=== PATIENT | female | born 1985 | race Caucasian/White ===

== ENCOUNTER 2019-01-27 16:02 | Inpatient (IN) | payer BC, SELFPAY ==
[~2019-01-27] VITALS: Ht 175.3 cm; Wt 111.1 kg
[2019-01-27] MEDS ORDERED: xanax (16:11)
[2019-01-27] MEDS ORDERED: bcp (16:11)
[2019-01-27] MEDS ORDERED: METF500T4 PO (16:11)
[2019-01-27] MEDS ORDERED: b/p med (16:11)
[2019-01-27 16:52] LABS: HEMOGLOBIN 13.5 g/dl (12.0-15.5); MEAN CORPUSCULAR HEMOGLOBIN 28.7 pg (27.0-33.0); MEAN CORPUSCULAR HGB CONC 32.9 g/dl (32.0-36.5); MEAN CORPUSCULAR VOLUME 87.2 fl (80.0-96.0); PLATELET COUNT, AUTOMATED 325 10^3/uL (150-450); WHITE BLOOD COUNT 9.7 10^3/uL (4.0-10.0)
[2019-01-27 17:21] LABS: HCG, SERUM QUALITATIVE NEGATIVE (NEGATIVE)
[2019-01-27 17:36] LABS: ACETAMINOPHEN LEVEL < 2.0 UG/ML (10.0-30.0); ALBUMIN 4.1 GM/DL (3.2-5.2); ALT/SGPT 48 U/L (12-78); BILIRUBIN,DIRECT 0.1 MG/DL (0.0-0.2); BILIRUBIN,TOTAL 0.6 MG/DL (0.2-1.0); BLOOD UREA NITROGEN 6 MG/DL (7-18); CALCIUM LEVEL 9.2 MG/DL (8.5-10.1); CARBON DIOXIDE LEVEL 24 MEQ/L (21-32); CHLORIDE LEVEL 104 MEQ/L (98-107); CREATININE FOR GFR 0.72 MG/DL (0.55-1.30); ETHYL ALCOHOL (ETHANOL) < 0.003 % (0.000-0.010); GLOMERULAR FILTRATION RATE > 60.0 (>60); GLUCOSE, FASTING 90 MG/DL (70-100); POTASSIUM SERUM 3.7 MEQ/L (3.5-5.1); SALICYLATE LEVEL 1.7 MG/DL (5.0-30.0); SODIUM LEVEL 137 MEQ/L (136-145)
[2019-01-27 18:33] LABS: AMPHETAMINES LEVEL URINE NEGATIVE (NEGATIVE); BARBITURATES URINE NEGATIVE (NEGATIVE); BENZODIAZEPINES URINE NEGATIVE (NEGATIVE); CANNABINOIDS URINE NEGATIVE (NEGATIVE); COCAINE METABOLITE URINE NEGATIVE (NEGATIVE); METHADONE URINE NEGATIVE (NEGATIVE); OPIATES URINE NEGATIVE (NEGATIVE); PHENCYCLIDINE URINE NEGATIVE (NEGATIVE)
[2019-01-27] MEDS ORDERED: metFORMIN (GLUCOPHAGE) 1000 MG TABLET PO ONE (20:04)
[2019-01-27] MEDS ORDERED: metFORMIN XR 500MG TAB *GLUCOPHAGE XR PO ONE (20:07)
[2019-01-27] MEDS ORDERED: MOM 30ML SUSPENSION UDC PO PRN (21:45)
[2019-01-27] MEDS ORDERED: traZODone 50 MG TAB PO PRN (21:45)
[2019-01-27] MEDS ORDERED: hydrOXYzine 50 MG TAB PO PRN (21:45)
[2019-01-27] MEDS ORDERED: ACETAMINOPHEN TAB 650MG DOSE (2X325MG) PO PRN (21:45)
[2019-01-27] MEDS ORDERED: MAALOX 30 ML SUSP *UDC PO PRN (21:45)
[2019-01-27] MEDS ORDERED: FLUO10CA8 PO (22:11)
[2019-01-27] MEDS ORDERED: LISI10TA2 PO (22:11)
[2019-01-27] MEDS ORDERED: ALPR0.25 PO (22:11)
[2019-01-27] MEDS ORDERED: PREVTAB2 PO (22:11)
[2019-01-27] MEDS ORDERED: METF10004 PO (22:11)
[2019-01-28 02:32] VITALS: BP 161/97
[2019-01-28 06:55] VITALS: BP 147/79
[2019-01-28] MEDS ORDERED: PALIPERIDONE 3 MG ER TAB (INVEGA) PO SCH (09:00)
[2019-01-28] MEDS: LISINOPRIL 10 MG TAB PO SCH (10:50)
[2019-01-28] MEDS: hydroCHLOROthiazide 12.5 MG CAPSULE PO SCH (11:03)
--- NOTE | 2019-01-28 13:40 | HPEPDOC ---
General Date of Admission January 27, 2019 at 21:43 Chief Complaint The patient is a 33-year-old female admitted with a reason for visit of Unspeci fied Psychotic Disorder. History of Present Illness Patient is a 33-year-old female, admitted on account of acute schizophrenic episode. Patient has a past medical history significant for obesity, anxiety disorder, type 2 diabetes mellitus, hypertension, and schizophrenia. Recent trigger seems to be loss of employment, medical nonadherence, paranoia about someone possibly breaking into her house and harming her 4-year-old daughter. On evaluation, she still feels very anxious and paranoid. She denies any chest pain, shortness of breath, palpitations, nausea, vomiting, chills or fever. She states she has not been sleeping for a few days since she was laid off "things became a bit crazy". Home Medications Scheduled Fluoxetine Hcl (Fluoxetine HCl) 10 Mg Capsule, 10 MG PO DAILY, (Reported) Lisinopril/Hydrochlorothiazide (Lisinopril-Hctz 10-12.5 mg Tab) 1 Each Tablet, 1 TAB PO DAILY, (Reported) Metformin HCl (Metformin HCl) 1,000 Mg Tablet, 1,000 MG PO QPM, (Reported) Norgestimate-Ethinyl Estradiol (Previfem Tablet) 1 Each Tablet, 1 TAB PO QHS, (Reported) Scheduled PRN Alprazolam (Alprazolam) 0.25 Mg Tablet, 0.25 MG PO BID PRN for ANXIETY, (Reported) Allergies Coded Allergies: No Known Allergies (Verified , 03/22/03) Past Medical History Medical History Hypertension Type 2 diabetes mellitus Anxiety Paranoid schizophrenia Insomnia A-FIB/CHADSVASC A-FIB History Current/History of A-Fib/PAF?: No Current Oral Anticoagulant The: No Review of Systems Other systems A 10 point pertinent review of systems is completed, negative except as stated in the history of present illness Physical Examination Other physical findings GENERAL: obese female in NAD SKIN : Warm, dry intact HEENT: Atraumatic, normocephalic, PERRL, moist mucous membrane CV: Regular rate and rhythm, S1S2, no JVD, no edema, distal pulses + and palpable RESP: CTAB, no accessory muscle use noted ABDOMEN: BS+ non distended non tender MS: no joint deformities NEURO: Alert and oriented x 3, CN2-12 grossly intact PSYCH: no anxiety or agitation, appropriate mood and affect. Vital Signs Vital Signs Date Time Temp Pulse Resp B/P (MAP) Pulse Ox O2 Delivery O2 Flow Rate FiO2 01/28/19 10:50 144/94 01/28/19 06:55 98.2 68 18 01/27/19 20:07 97 Room Air Laboratory Data Labs 24H Laboratory Tests 2 01/27/19 16:45: Nucleated Red Blood Cells % (auto) 0.0, Anion Gap 9, Glomerular Filtration Rate > 60.0, Calcium Level 9.2, Aspartate Amino Transf (AST/SGOT) 26, Alanine Aminotransferase (ALT/SGPT) 48, Alkaline Phosphatase 59, Total Bilirubin 0.6, Direct Bilirubin 0.1, Total Protein 8.0, Albumin 4.1, Albumin/Globulin Ratio 1.05, Thyroid Stimulating Hormone (TSH) 1.980, Human Chorionic Gonadotropin, Qual NEGATIVE, Salicylates Level 1.7L, Acetaminophen Level < 2.0L, Ethyl Alcohol Level < 0.003 01/27/19 17:49: Urine Amphetamines Screen NEGATIVE, Urine Benzodiazepines Screen NEGATIVE, Urine Opiates Screen NEGATIVE, Urine Methadone Screen NEGATIVE, Urine Barbiturates Screen NEGATIVE, Urine Phencyclidine Screen NEGATIVE, Urine Cocaine Metabolite Screen NEGATIVE, Urine Cannabinoids Screen NEGATIVE CBC/BMP Laboratory Tests 01/27/19 16:45 Red Blood Count 4.70, Mean Corpuscular Volume 87.2, Mean Corpuscular Hemoglobin 28.7, Mean Corpuscular Hemoglobin Concent 32.9, Red Cell Distribution Width 13.0 Assessment/Plan Hypertension Type 2 diabetes mellitus Insomnia Depression and anxiety Paranoid schizophrenia PLAN Finger stick checks prior to meals and at bedtime Diabetic diet Restart Glucophage, blood sugar control Restart blood pressure medication, lisinopril, hydrochlorothiazide Management of acute psychiatric problems by primary team Plan / VTE VTE Prophylaxis Ordered?: No VTE Exclusion Mechanical Proph: Low Risk for VTE KAYLA KLEIN January 28, 2019 13:40
--- NOTE | 2019-01-28 16:55 | MHHPEPDOC ---
General Date Of Admission: January 27, 2019 Legal Status: 9.39 Chief Complaint The patient was incoherent and seemed delusional, responding to internal stimuli. History of Present Illness HISTORY OF THE PRESENT ILLNESS: Patient is a 33 -year-old , female, who . Psychiatric Review of Systems Depression (2 or more weeks): denies (She is a poor historian, she only says that she has been "through ups and downslately because I'm just a busy nom, I'm trying to graduate and my daughter will graduate from [employer].") Lois (4 or more days of): decreased need for sleep (Please see below), distractibility, denies (she says she has not been sleeping for a couple of days, she is a poor historian and she is not giving precise information, she is not able to say how many days, of if she was having too much energy. She says she eas fired from her job and then, she has been going to sleep late and waking up late, so, she came to the point of not sleeping and that she only needs a good night sleep.) Psychosis: denies PTSD: denies Anxiety: gen/non-specific anxiety Anxiety/ 6 months or more of: restlessness, keyed up, irritability, muscle tension, sleep disturbance Past Psychiatric History Previous Psychiatric Diagnosis: Denies Previous Psychiatric Admissions: Denies Suicide Attempts: Denies Psychiatric Follow-up: [facility] Psychiatric medications: Denies Past Medical History Medical Problems Denies Head Injury: Yes (She says that she injured her head a couple of times but she never lost consciousness) Seizures: No Hospitalizations: Yes (This one and for child ) Surgeries: Yes (D and C's) Family Medical/Psychiatric HX Medical Problems Denies Psychiatric Disorders: No Addiction: No Suicide Attemps/Completions: No Addiction History nicotine (once in awhile), alcohol (once in awhile) Social History Childhood: She describes a nice childhood, she liked to play outside. she says she has a sister and a half brother, they got along, she is not very clear about her siblings ages, but she implies that they are 5 years apart. She reports going to school and enjoying it, not being bullied Abuse/Trauma: Denies Current Living Situation: Lives with , 4 year old daughter and stepson Education: some college education (accounting) Employment: Was recently laid off Social Support: Her , her mother in law Legal: Denies Marital: , has a 4 year old daughter and a stepson. Mental Status Examination General Appearance: well groomed, appears stated age, hospital scubs/clothing Build: overweight Demeanor: mistrustful, preoccupied, guarded, very figety Eye Contact: intense Activity: anxious Behavior: cooperative, resistant, restless Speech: clear, spontaneous, reg/rate,rhythm,volume Mood: anxious, hypomanic Affect: inappropriate (laughs at times when talking about srious subjects), i ncongruent, anxious, disorganized Thought Process: incoherent, tangential, loose Thought Content (Delusions): denies SI, HI, AVH Thought Content (Other): internal-stimuli, appears paranoid Thought Content (Aggressive): none reported Perception (Hallucinations): none reported Perception (Other): none reported Cognition (Impairment of): attention/concentration Cognition(Intelligence Est.): average Oriented: Awake, Alert, Oriented times three Insight: poor Judgment: Poor Psychosis: Associations, Psychotic Perceptions Diagnoses 1. Unspecified psychotic disorder 2. R/O bipolar disorder with psychosis Assessment Patient's thoughts are disorganized and she is paranoid. At one point she moved from her chair to another one because she was afraid and she didn't want to sit against the window, she kept looking back and I reassured and told her there was nobody there, nobody was going to harm her. she minimizes her symptos, she says several times that she was awake for several days because she got fired so she went late to bed and got up late until she came to the point of not sleeping and "all that I need was a good night sleep and eat well". Only once she became tearful, when she told me she was just a busy mother, she had been trying to study, she was going to college, she was about to graduate and she had a pre K daughter who was about to graduate, plus, she was working, so, it was too much. Initial Treatment Plan 1. Patient was admitted on a [9.39] status. 2. Complete history was obtained. 3. With patients permission, family will be contacted and database will be expanded. 4. Patients medication regimen will be reviewed and changed accordingly. 5. Patient will be provided with protected environment. 6. Patient will be treated with individual, group, and milieu therapies. 7. Patient will receive supportive psych-education. 8. Discharge planning will commence immediately. 9. Outpatient follow-up treatment will be strongly recommended. 10. The initial treatment plan will focus initially on: * Altered thoughts * Altered perceptions * Risk for suicide. * Substance abuse. ESTIMATED LENGTH OF STAY: 5-7 DAYS. TIME SPENT COUNSELING AND COORDINATING INITIAL CARE: 50 minutes. Vital Signs Vital Signs Date Time Temp Pulse Resp B/P (MAP) Pulse Ox O2 Delivery O2 Flow Rate FiO2 01/28/19 10:50 144/94 01/28/19 06:55 98.2 68 18 01/27/19 20:07 97 Room Air Laboratory Data 24H Labs Laboratory Tests 2 01/27/19 16:45: Nucleated Red Blood Cells % (auto) 0.0, Anion Gap 9, Glomerular Filtration Rate > 60.0, Calcium Level 9.2, Aspartate Amino Transf (AST/SGOT) 26, Alanine Aminotransferase (ALT/SGPT) 48, Alkaline Phosphatase 59, Total Bilirubin 0.6, Direct Bilirubin 0.1, Total Protein 8.0, Albumin 4.1, Albumin/Globulin Ratio 1.05, Thyroid Stimulating Hormone (TSH) 1.980, Human Chorionic Gonadotropin, Qual NEGATIVE, Salicylates Level 1.7L, Acetaminophen Level < 2.0L, Ethyl Alcohol Level < 0.003 01/27/19 17:49: Urine Amphetamines Screen NEGATIVE, Urine Benzodiazepines Screen NEGATIVE, Urine Opiates Screen NEGATIVE, Urine Methadone Screen NEGATIVE, Urine Barbiturates Screen NEGATIVE, Urine Phencyclidine Screen NEGATIVE, Urine Cocaine Metabolite Screen NEGATIVE, Urine Cannabinoids Screen NEGATIVE CBC/BMP Laboratory Tests 01/27/19 16:45 Red Blood Count 4.70, Mean Corpuscular Volume 87.2, Mean Corpuscular Hemoglobin 28.7, Mean Corpuscular Hemoglobin Concent 32.9, Red Cell Distribution Width 13.0 Medications Scheduled Fluoxetine Hcl (Fluoxetine HCl) 10 Mg Capsule, 10 MG PO DAILY, (Reported) Lisinopril/Hydrochlorothiazide (Lisinopril-Hctz 10-12.5 mg Tab) 1 Each Tablet, 1 TAB PO DAILY, (Reported) Metformin HCl (Metformin HCl) 1,000 Mg Tablet, 1,000 MG PO QPM, (Reported) Norgestimate-Ethinyl Estradiol (Previfem Tablet) 1 Each Tablet, 1 TAB PO QHS, (Reported) Scheduled PRN Alprazolam (Alprazolam) 0.25 Mg Tablet, 0.25 MG PO BID PRN for ANXIETY, (Reported) Allergies Coded Allergies: No Known Allergies (Verified , 03/22/03) ELIZABET BRANDT MD January 28, 2019 16:55
[2019-01-28] MEDS: metFORMIN (GLUCOPHAGE) 1000 MG TABLET PO SCH (17:52)
[2019-01-28 18:00] VITALS: BP 135/87
[2019-01-29 06:23] VITALS: BP 150/80
[2019-01-29] MEDS: metFORMIN (GLUCOPHAGE) 1000 MG TABLET PO SCH ×2 (08:00→18:14)
[2019-01-29] MEDS: hydroCHLOROthiazide 12.5 MG CAPSULE PO SCH (10:02)
[2019-01-29] MEDS: LISINOPRIL 10 MG TAB PO SCH (10:02)
[2019-01-29 18:00] VITALS: BP 142/65
--- NOTE | 2019-01-29 19:51 | MHIPNPDOC ---
[facility] Progress Note Progress Note DATE OF SERVICE: 01/29/19 HISTORY: In History of Present Illness should read: "As per ED report: "Pt. reports she has not not slept in days, stattes feeling very anxious. She reports her counselor wanted her come to ER. Pt. states she can't think, needs to get some help and some sleep. he states she hasn't been taking her meds but then says she did take them this morning. She appears very anxious, is unable to verbally complete her thoughts, states "What was I saying?" She denies AH, VH. When asked if she has had any thouights of harning herself she replied "No" andthen asked "i haven't have I?" and answered the sane to question of thoughts of harming others and started crying. She reports she is afraid that someone would break into her house because she has a 4 yr old daughter and she is afraid of pediphiles, stating she couldn't bare the thought of someone harning her. pt states she thinks all these thoughts might be due to too much going on in her life. She reports she is having difficulty getting use to not working. Her is out of town working , is here with mother in law and has written of list of who she trusts". VITAL SIGNS: See below. NEW TEST RESULTS: See below CURRENT MEDICATIONS: See below. MENTAL STATUS EXAMINATION: General Appearance: well groomed, appears stated age, hospital scubs/clothing Build: overweight Demeanor: mistrustful, preoccupied, guarded, very figety Eye Contact: intense Activity: anxious Behavior: cooperative, resistant, restless Speech: clear, spontaneous, reg/rate,rhythm,volume Mood: anxious, hypomanic Affect: inappropriate (laughs at times when talking about srious subjects), incongruent, anxious, disorganized Thought Process: incoherent, tangential, loose Thought Content (Delusions): denies SI, HI, AVH Thought Content (Other): internal-stimuli, appears paranoid Thought Content (Aggressive): none reported Perception (Hallucinations): none reported Perception (Other): none reported Cognition (Impairment of): attention/concentration Cognition(Intelligence Est.): average Oriented: Awake, Alert, Oriented times three Insight: poor Judgment: Poor Psychosis: Associations, Psychotic Perceptions Diagnoses 1. Unspecified psychotic disorder 2. R/O bipolar disorder with psychosis ASSESSMENT: The patient mental status exam has not changed that much since yesterday, she is still paranoid, guarded and focused on being discharged. This radio news writer told her that in order to be discharged, she needs to sign an TODD for us to speak with her and take her medications. She has agreed although I don't know if she will do it. MANAGEMENT PLAN: Will continue with the same treatment plan TIME SPENT: 20 minutes. Vital Signs Vital Signs Date Time Temp Pulse Resp B/P (MAP) Pulse Ox O2 Delivery O2 Flow Rate FiO2 01/29/19 18:00 97.2 97 16 142/65 (90) 01/27/19 20:07 97 Room Air Laboratory Data 24H Labs Laboratory Tests 2 01/29/19 06:04: Bedside Glucose (Misc Panel) 97 Current Medications Current Medications Acetaminophen (Tylenol Tab) 650 mg Q6HP PRN PO HEADACHE or DISCOMFORT; Start 01/27/19 at 21:45 Al Hydrox/Mg Hydrox/Simethicone (Mylanta) 30 ml Q4HP PRN PO HEARTBURN/INDIGESTION; Start 01/27/19 at 21:45 Aripiprazole (AbiLIFY) 5 mg DAILY PO Last administered on 01/29/19at 10:02; Start 01/28/19 at 17:30 Home Med (Med Rec Complete!) ASDIRECTED XX ; Start 01/27/19 at 22:15; Stop 01/27/19 at 22:15; Status DC Hydrochlorothiazide (Hydrodiuril) 12.5 mg DAILY PO Last administered on 01/29/19at 10:02; Start 01/28/19 at 09:00 Hydroxyzine HCl (Atarax) 50 mg Q4HP PRN PO ANXIETY/AGITATION; Start 01/27/19 at 21:45 Lisinopril (Prinivil) 10 mg DAILY PO Last administered on 01/29/19at 10:02; Start 01/28/19 at 09:00 Magnesium Hydroxide (Milk Of Magnesia) 30 ml DAILYPRN PRN PO CONSTIPATION; Start 01/27/19 at 21:45 Metformin HCl (Glucophage) 1,000 mg BID@08,18 PO Last administered on 01/29/19at 18:14; Start 01/28/19 at 18:00 Paliperidone (Invega) 3 mg BID PO ; Start 01/28/19 at 09:00; Stop 01/28/19 at 16:58; Status DC Trazodone HCl (Desyrel) 50 mg QHSP PRN PO INSOMNIA; Start 01/27/19 at 21:45 Allergies Coded Allergies: No Known Allergies (Verified , 03/22/03) A-FIB/CHADSVASC A-FIB History Current/History of A-Fib/PAF?: No Current Oral Anticoagulant The: No Age/Risk Factor Scoring CHADSVASC: CHADSVASC Response (Comments) Value Age Risk Factor Age < 65 years old 0 Hx of CHF No 0 Hx of HTN No 0 Hx of Stroke/TIA/or VTE No 0 Hx of Diabetes No 0 Hx of Vascular Disease No 0 Total 0 Treatment Treatment ordered: NONE Reason Anticoagulant not given: Not indicated/[id number] ELIZABET BRANDT MD January 29, 2019 19:51
[2019-01-30 07:09] VITALS: BP 149/91
[2019-01-30] MEDS: hydroCHLOROthiazide 12.5 MG CAPSULE PO SCH (08:37)
[2019-01-30] MEDS: LISINOPRIL 10 MG TAB PO SCH (08:37)
[2019-01-30] MEDS: metFORMIN (GLUCOPHAGE) 1000 MG TABLET PO SCH ×2 (08:37→17:26)
--- NOTE | 2019-01-30 18:21 | MHIPNPDOC ---
[facility] Progress Note Progress Note DATE OF SERVICE: 01/30/19 HISTORY: In History of Present Illness should read: "As per ED report: "Pt. reports she has not not slept in days, stattes feeling very anxious. She reports her counselor wanted her come to ER. Pt. states she can't think, needs to get some help and some sleep. he states she hasn't been taking her meds but then says she did take them this morning. She appears very anxious, is unable to verbally complete her thoughts, states "What was I saying?" She denies AH, VH. When asked if she has had any thouights of harning herself she replied "No" andthen asked "i haven't have I?" and answered the sane to question of thoughts of harming others and started crying. She reports she is afraid that someone would break into her house because she has a 4 yr old daughter and she is afraid of pediphiles, stating she couldn't bare the thought of someone harning her. pt states she thinks all these thoughts might be due to too much going on in her life. She reports she is having difficulty getting use to not working. Her is out of town working , is here with mother in law and has written of list of who she trusts". VITAL SIGNS: See below. NEW TEST RESULTS: See below CURRENT MEDICATIONS: See below. MENTAL STATUS EXAMINATION: General Appearance: well groomed, appears stated age, hospital scubs/clothing Build: overweight Demeanor: mistrustful, preoccupied, guarded, very figety Eye Contact: intense Activity: anxious Behavior: cooperative, resistant, restless Speech: clear, spontaneous, reg/rate,rhythm,volume Mood: anxious, hypomanic Affect: inappropriate (laughs at times when talking about serious subjects), incongruent, anxious, disorganized Thought Process: incoherent, tangential, loose Thought Content (Delusions): denies SI, HI, AVH Thought Content (Other): internal-stimuli, appears paranoid Thought Content (Aggressive): none reported Perception (Hallucinations): none reported Perception (Other): none reported Cognition (Impairment of): attention/concentration Cognition(Intelligence Est.): average Oriented: Awake, Alert, Oriented times three Insight: poor Judgment: Poor Psychosis: Associations, Psychotic Perceptions Diagnoses 1. Unspecified psychotic disorder 2. R/O bipolar disorder with psychosis 3. R/O Substance induced psychosis ASSESSMENT: The patient mental status exam has not changed much. she presented to treatment team this morning and she was nervous, wanting to peak to me abut discharge. she was seen later and she was still nervous and guarded. She became tearful when she started talking to me about her 4 year old girl and she showed me her pictures. she said she didn't know if she could put them on the wall and this hand sign writer suggested that it was better if she kept them for herself. She was still confused, she thought that she had been assigned with bed 1 in her room and not bed 2. She asked me, so, would they move if I was sleeping?, like I don't remember how I ended up in this bed" This hand sign writer mentioned that her relatives had told inventory control planner that she had changed when she ate brownies that contained marijuana, that was 2 weeks ago. Her urine tox was negative and she says she didn't know the brownies had marijuana in them. she seems to have some thought blocking, at times she is tangential, she is guarded, paranoid and at times inappropriate, when she stares at you, and comes really close, then she realizes that she is too close and backs up. MANAGEMENT PLAN: Increase Abilify to 0.5 mgs PO BID and Cogentin 0.5 mgs PO BID TIME SPENT: 20 minutes. Vital Signs Vital Signs Date Time Temp Pulse Resp B/P (MAP) Pulse Ox O2 Delivery O2 Flow Rate FiO2 01/30/19 08:37 140/84 01/30/19 07:09 98.0 75 18 01/27/19 20:07 97 Room Air Laboratory Data 24H Labs Laboratory Tests 2 01/30/19 06:24: Bedside Glucose (Misc Panel) 91 01/30/19 16:57: Bedside Glucose (Misc Panel) 102 Current Medications Current Medications Acetaminophen (Tylenol Tab) 650 mg Q6HP PRN PO HEADACHE or DISCOMFORT; Start 01/27/19 at 21:45 Al Hydrox/Mg Hydrox/Simethicone (Mylanta) 30 ml Q4HP PRN PO HEARTBURN/INDIGESTION; Start 01/27/19 at 21:45 Aripiprazole (AbiLIFY) 5 mg DAILY PO Last administered on 01/30/19at 08:37; Start 01/28/19 at 17:30 Home Med (Med Rec Complete!) ASDIRECTED XX ; Start 01/27/19 at 22:15; Stop 01/27/19 at 22:15; Status DC Hydrochlorothiazide (Hydrodiuril) 12.5 mg DAILY PO Last administered on 01/30/19at 08:37; Start 01/28/19 at 09:00 Hydroxyzine HCl (Atarax) 50 mg Q4HP PRN PO ANXIETY/AGITATION; Start 01/27/19 at 21:45 Lisinopril (Prinivil) 10 mg DAILY PO Last administered on 01/30/19at 08:37; Start 01/28/19 at 09:00 Magnesium Hydroxide (Milk Of Magnesia) 30 ml DAILYPRN PRN PO CONSTIPATION; Start 01/27/19 at 21:45 Metformin HCl (Glucophage) 1,000 mg BID@08,18 PO Last administered on 01/30/19at 17:26; Start 01/28/19 at 18:00 Paliperidone (Invega) 3 mg BID PO ; Start 01/28/19 at 09:00; Stop 01/28/19 at 16:58; Status DC Trazodone HCl (Desyrel) 50 mg QHS PO ; Start 01/30/19 at 21:00 Trazodone HCl (Desyrel) 50 mg QHSP PRN PO INSOMNIA; Start 01/27/19 at 21:45; Stop 01/30/19 at 10:54; Status DC Allergies Coded Allergies: No Known Allergies (Verified , 03/22/03) A-FIB/CHADSVASC A-FIB History Current/History of A-Fib/PAF?: No Current Oral Anticoagulant The: No Age/Risk Factor Scoring CHADSVASC: CHADSVASC Response (Comments) Value Age Risk Factor Age < 65 years old 0 Hx of CHF No 0 Hx of HTN No 0 Hx of Stroke/TIA/or VTE No 0 Hx of Diabetes No 0 Hx of Vascular Disease No 0 Total 0 Treatment Treatment ordered: NONE Reason Anticoagulant not given: Not indicated/[id number] ELIZABET BRANDT MD January 30, 2019 17:32
[2019-01-30 18:37] VITALS: BP 137/81
[2019-01-30] MEDS: traZODone 50 MG TAB PO SCH (22:11)
[2019-01-30] MEDS: BENZTROPINE 0.5 MG TAB PO SCH (22:11)
[2019-01-31 06:40] VITALS: BP 138/79
[2019-01-31] MEDS: metFORMIN (GLUCOPHAGE) 1000 MG TABLET PO SCH ×2 (07:29→17:53)
[2019-01-31] MEDS: BENZTROPINE 0.5 MG TAB PO SCH ×2 (08:22→21:00)
[2019-01-31] MEDS: hydroCHLOROthiazide 12.5 MG CAPSULE PO SCH (08:22)
[2019-01-31] MEDS: LISINOPRIL 10 MG TAB PO SCH (08:22)
[2019-01-31] MEDS ORDERED: ARIPiprazole 2 MG TAB PO SCH (09:00)
--- NOTE | 2019-01-31 15:36 | MHIPNPDOC ---
[facility] Progress Note Progress Note DATE OF SERVICE: 01/31/19 HISTORY: 33-year-old female was admitted for thought disorder. Presently treated with Abilify by Dr. Rene. VITAL SIGNS: See below. NEW TEST RESULTS: None. CURRENT MEDICATIONS: See below. MENTAL STATUS EXAMINATION: Patient is a 33-year old female, who is milligrams for thought disorder. Speech: Is characterized by thought stopping. Language skills are, poor. Thought processes including: Thought stopping. Thought content:, Thought stopping. Abstract reasoning, and computation: Poor. Description of associations:, Poor association. Description of abnormal or psychotic thoughts: Thought stopping and incomplete sentences Judgment:, Poor. Insight:, Poor. Orientation:. Oriented 3. Recent and remote memory:. Poor. Attention span and concentration: Poor. Language: Incomplete sentences. Fund of knowledge:. Unable to determine. Mood: Anxious. Affect:, Congruent. DIAGNOSES: 1. Brief psychotic reaction ASSESSMENT: This patient has a thought disorder, indicative of a brief psychotic reaction, possibly due to substance use MANAGEMENT PLAN: As per Dr Rene presently using Abilify. TIME SPENT: 30 minutes. Vital Signs Vital Signs Date Time Temp Pulse Resp B/P (MAP) Pulse Ox O2 Delivery O2 Flow Rate FiO2 01/31/19 08:22 133/91 01/31/19 06:40 98.4 74 18 01/27/19 20:07 97 Room Air Laboratory Data 24H Labs Laboratory Tests 2 01/30/19 16:57: Bedside Glucose (Misc Panel) 102 01/31/19 05:55: Bedside Glucose (Misc Panel) 86 Current Medications Current Medications Acetaminophen (Tylenol Tab) 650 mg Q6HP PRN PO HEADACHE or DISCOMFORT Last administered on 01/30/19at 22:12; Start 01/27/19 at 21:45 Al Hydrox/Mg Hydrox/Simethicone (Mylanta) 30 ml Q4HP PRN PO HEARTBURN/INDIGESTION; Start 01/27/19 at 21:45 Aripiprazole (AbiLIFY) 2 mg QAM PO ; Start 01/31/19 at 09:00; Status Cancel Aripiprazole (AbiLIFY) 5 mg BID PO Last administered on 01/31/19at 08:23; Start 01/30/19 at 21:00 Aripiprazole (AbiLIFY) 5 mg DAILY PO Last administered on 01/30/19at 08:37; Start 01/28/19 at 17:30; Stop 01/30/19 at 18:09; Status DC Aripiprazole (AbiLIFY) 5 mg DAILY PO ; Start 01/31/19 at 09:00; Stop 01/31/19 at 09:00; Status DC Benztropine Mesylate (Cogentin) 0.5 mg BID PO Last administered on 01/31/19at 08:22; Start 01/30/19 at 21:00 Home Med (Med Rec Complete!) ASDIRECTED XX ; Start 01/27/19 at 22:15; Stop 01/27/19 at 22:15; Status DC Hydrochlorothiazide (Hydrodiuril) 12.5 mg DAILY PO Last administered on 01/31/19at 08:22; Start 01/28/19 at 09:00 Hydroxyzine HCl (Atarax) 50 mg Q4HP PRN PO ANXIETY/AGITATION; Start 01/27/19 at 21:45 Lisinopril (Prinivil) 10 mg DAILY PO Last administered on 01/31/19at 08:22; Start 01/28/19 at 09:00 Magnesium Hydroxide (Milk Of Magnesia) 30 ml DAILYPRN PRN PO CONSTIPATION; Start 01/27/19 at 21:45 Metformin HCl (Glucophage) 1,000 mg BID@08,18 PO Last administered on 01/31/19at 07:29; Start 01/28/19 at 18:00 Paliperidone (Invega) 3 mg BID PO ; Start 01/28/19 at 09:00; Stop 01/28/19 at 16:58; Status DC Trazodone HCl (Desyrel) 50 mg QHS PO Last administered on 01/30/19at 22:11; Start 01/30/19 at 21:00 Trazodone HCl (Desyrel) 50 mg QHSP PRN PO INSOMNIA; Start 01/27/19 at 21:45; Stop 01/30/19 at 10:54; Status DC Allergies Coded Allergies: No Known Allergies (Verified , 03/22/03) A-FIB/CHADSVASC A-FIB History Current/History of A-Fib/PAF?: No Current Oral Anticoagulant The: No Age/Risk Factor Scoring CHADSVASC: CHADSVASC Response (Comments) Value Age Risk Factor Age < 65 years old 0 Hx of CHF No 0 Hx of HTN No 0 Hx of Stroke/TIA/or VTE No 0 Hx of Diabetes No 0 Hx of Vascular Disease No 0 Total 0 Treatment Treatment ordered: NONE TOMI SHAY MD January 31, 2019 15:36
[2019-01-31 18:28] VITALS: BP 137/66
[2019-01-31] MEDS: traZODone 50 MG TAB PO SCH (21:00)
[2019-02-01 06:32] VITALS: BP 136/88
[2019-02-01] MEDS: metFORMIN (GLUCOPHAGE) 1000 MG TABLET PO SCH ×2 (07:49→17:20)
[2019-02-01] MEDS: hydroCHLOROthiazide 12.5 MG CAPSULE PO SCH (08:12)
[2019-02-01] MEDS: BENZTROPINE 0.5 MG TAB PO SCH ×2 (08:12→20:29)
[2019-02-01] MEDS: LISINOPRIL 10 MG TAB PO SCH (08:12)
--- NOTE | 2019-02-01 15:25 | MHIPNPDOC ---
[facility] Progress Note Progress Note DATE OF SERVICE: 02/01/19 HISTORY: 33-year-old female with acute psychotic disorder. VITAL SIGNS: See below. NEW TEST RESULTS: None. CURRENT MEDICATIONS: See below. MENTAL STATUS EXAMINATION: Patient is a 33-year old female, who is improved today with less psychotic thought. Speech: Is. Normal. Language skills are adequate. Thought processes including: No thought stopping noted today. Thought content: Had until today. Significant thought stopping and s uspiciousness. Abstract reasoning, and computation: Present. Description of associations:. No loose association. Description of abnormal or psychotic thoughts:. No psychotic thought noted today. Judgment: Poor. Patient had stopped her medications Insight: Improved Orientation: Full . Recent and remote memory: Mildly impaired. Attention span and concentration: Improved. Language: As above. Fund of knowledge:. Full. Mood: Euthymic. Affect:, Congruent. DIAGNOSES: 1. Acute psychotic reaction. ASSESSMENT: Patient appeared flagrantly psychotic yesterday and during admission. Clarification as to the cause of this psychotic behavior needs to be made MANAGEMENT PLAN:. Continued observation and treatment. TIME SPENT: 30 minutes. Vital Signs Vital Signs Date Time Temp Pulse Resp B/P (MAP) Pulse Ox O2 Delivery O2 Flow Rate FiO2 02/01/19 08:12 136/90 02/01/19 06:32 98.0 70 14 01/27/19 20:07 97 Room Air Laboratory Data 24H Labs Laboratory Tests 2 01/31/19 17:16: Bedside Glucose (Misc Panel) 83 02/01/19 06:01: Bedside Glucose (Misc Panel) 82 Current Medications Current Medications Acetaminophen (Tylenol Tab) 650 mg Q6HP PRN PO HEADACHE or DISCOMFORT Last administered on 01/30/19at 22:12; Start 01/27/19 at 21:45 Al Hydrox/Mg Hydrox/Simethicone (Mylanta) 30 ml Q4HP PRN PO HEARTBURN/INDIGESTION; Start 01/27/19 at 21:45 Aripiprazole (AbiLIFY) 2 mg QAM PO ; Start 01/31/19 at 09:00; Status Cancel Aripiprazole (AbiLIFY) 5 mg BID PO Last administered on 02/01/19at 08:12; Start 01/30/19 at 21:00 Aripiprazole (AbiLIFY) 5 mg DAILY PO Last administered on 01/30/19at 08:37; Start 01/28/19 at 17:30; Stop 01/30/19 at 18:09; Status DC Aripiprazole (AbiLIFY) 5 mg DAILY PO ; Start 01/31/19 at 09:00; Stop 01/31/19 at 09:00; Status DC Benztropine Mesylate (Cogentin) 0.5 mg BID PO Last administered on 02/01/19at 08:12; Start 01/30/19 at 21:00 Home Med (Med Rec Complete!) ASDIRECTED XX ; Start 01/27/19 at 22:15; Stop 01/27/19 at 22:15; Status DC Hydrochlorothiazide (Hydrodiuril) 12.5 mg DAILY PO Last administered on 02/01/19at 08:12; Start 01/28/19 at 09:00 Hydroxyzine HCl (Atarax) 50 mg Q4HP PRN PO ANXIETY/AGITATION; Start 01/27/19 at 21:45 Lisinopril (Prinivil) 10 mg DAILY PO Last administered on 02/01/19at 08:12; Start 01/28/19 at 09:00 Magnesium Hydroxide (Milk Of Magnesia) 30 ml DAILYPRN PRN PO CONSTIPATION; Start 01/27/19 at 21:45 Metformin HCl (Glucophage) 1,000 mg BID@08,18 PO Last administered on 02/01/19at 07:49; Start 01/28/19 at 18:00 Paliperidone (Invega) 3 mg BID PO ; Start 01/28/19 at 09:00; Stop 01/28/19 at 16:58; Status DC Trazodone HCl (Desyrel) 50 mg QHS PO Last administered on 01/30/19at 22:11; Start 01/30/19 at 21:00 Trazodone HCl (Desyrel) 50 mg QHSP PRN PO INSOMNIA; Start 01/27/19 at 21:45; Stop 01/30/19 at 10:54; Status DC Allergies Coded Allergies: No Known Allergies (Verified , 03/22/03) A-FIB/CHADSVASC A-FIB History Current/History of A-Fib/PAF?: No Current Oral Anticoagulant The: No Age/Risk Factor Scoring CHADSVASC: CHADSVASC Response (Comments) Value Age Risk Factor Age < 65 years old 0 Hx of CHF No 0 Hx of HTN No 0 Hx of Stroke/TIA/or VTE No 0 Hx of Diabetes No 0 Hx of Vascular Disease No 0 Total 0 Treatment Treatment ordered: NONE TOMI SHAY MD February 01, 2019 15:25
[2019-02-01 18:00] VITALS: BP 135/83
[2019-02-01] MEDS: traZODone 50 MG TAB PO SCH (21:00)
[2019-02-02 06:37] VITALS: BP 137/74
[2019-02-02 08:10] VITALS: BP 137/74
[2019-02-02] MEDS: BENZTROPINE 0.5 MG TAB PO SCH (08:10)
[2019-02-02] MEDS: hydroCHLOROthiazide 12.5 MG CAPSULE PO SCH (08:10)
[2019-02-02] MEDS: LISINOPRIL 10 MG TAB PO SCH (08:10)
[2019-02-02] MEDS ORDERED: FLUoxetine 10 MG CAP PO SCH (09:00)
[2019-02-02] MEDS ORDERED: LISI10TA2 PO (13:14)
[2019-02-02] MEDS ORDERED: ABIL1TAB11 PO (13:14)
[2019-02-02] MEDS ORDERED: METF10004 PO (13:14)
[2019-02-02] MEDS ORDERED: BENZ0.5T PO (13:14)
[2019-02-02] MEDS ORDERED: FLUO10CA8 PO (13:14)
[2019-02-02] MEDS ORDERED: PREVTAB2 PO (13:14)
[2019-02-02] MEDS ORDERED: HYDRO50TAB PO (13:14)
[2019-02-02] MEDS ORDERED: metFORMIN (GLUCOPHAGE) 1000 MG TABLET PO SCH (18:00)
--- NOTE | 2019-02-03 15:49 | MHDSPDOC ---
[facility] Discharge Summary Discharge Summary DATE OF ADMISSION: January 27, 2019 at 21:43 DATE OF DISCHARGE: February 02, 2019 at 18:26 DISCHARGE DIAGNOSES: 1. Unspecified psychotic disorder, r/o acute psychotic episode versus substance induced psychosis 2. Marijuana use disorder REASON FOR ADMISSION: "As per ED report: "Pt. reports she has not not slept in days, stattes feeling very anxious. She reports her counselor wanted her come to ER. Pt. states she can't think, needs to get some help and some sleep. he states she hasn't been taking her meds but then says she did take them this morning. She appears very anxious, is unable to verbally complete her thoughts, states "What was I saying?" She denies AH, VH. When asked if she has had any thouights of harning herself she replied "No" andthen asked "i haven't have I?" and answered the sane to question of thoughts of harming others and started crying. She reports she is afraid that someone would break into her house because she has a 4 yr old daughter and she is afraid of pediphiles, stating she couldn't bare the thought of someone harning her. pt states she thinks all these thoughts might be due to too much going on in her life. She reports she is having difficulty getting use to not working. Her is out of town working , is here with mother in law and has written of list of who she trusts". CONSULTANTS INVOLVED: None TREATMENT AND PROGRESS ON THE UNIT : upon initial evaluation the patient was psychotic, she was extremely paranoid, suspicious and guarded. She would look over her shoulder frequently, she felt very uncomfortable when her back was facing a window or a door. She was not insightful about her problem, but she never became violent or aggressive towards staff. she became tearful during that initial evaluation when she said that she was jus trying to do to much, trying to graduate from College, be the mother to 4 year old daughter who was just graduating from [employer], she had been fired from her job, where she had been working for almost 7 years. she was brought to the Ed by her mother in law and she signed an TODD for us to speak with her mother in law but not her and initially she refused all her medications, she constatnly said that she needed to go home because the only thing she needed here was a good night sleep. Later on, when Protective Signal Operations Supervisor was able to speak with her he entioned that 2 weeks ago, she had eaten some brownies that contained marijuana. He said shortly after this, she started changing. When she talked about her daughter, she cried. At one point, when she was feeling a little bit better, she showed me her daughter's pictures and she started crying. Two days later she was finally able to have a normal conversation, she was not paranoid and not tangential as she had presented days before. 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 During one of those miscarriages, she almost because she lost too much blood. she had been told she had very little amount of progesterone and for that reason, she was not able to hold her pregnancies. Losing her babies had made her feel very scared and shortly after s he had her daughter, she became almost paranoid, thinking that something bad could happen to her child; that fear had remained in there. This scientific technical writer talked to her about eating brownies with marijuana and she said she didn't know they had marijuana, she only knew they all had eaten them. this scientific technical writer explained that it could be a reaction to marijuana but it could be that she had a p sychiatric illness that was triggered by marihuana. She had been under a lot of stress. she said after her 4 year old girl was born, her father (one month later) and later on, her father in law , plus she had those 2 miscarriages. the patient did will on her medications and she didn't complain/not developed side effects. On 02/02/19 she was ready to be discharged, she was not suicidal, not homicidal and not psychotic, she was future orientated, wanted to go back home and take care of her daughter, in the future, wanted to go back to school HOSPITAL COURSE: As above DISCHARGE ASSESSMENT: The patient was not suicidal, not homicidal and not psychotic at the time of her discharge. she was able to contract for safety, she had not exhibited medication side effects, she was goal orientated. MENTAL STATUS EXAMINATION ON DISCHARGE: Patient is a 33-year old female, who is alert, dressed in hospital clothe, pleasant, ooperative. Speech is spontaneous and fluent, normal rate, rhythm, tone and volume. Language skills are good. Thought processes including: linear, coherent. Thought content: goal orientated, positive, optimistic thoughts. Abstract reasoning, and computation: good. Description of associations: not loose. Description of abnormal or psychotic thoughts: denies SI, dnies Hi, denies AV hallucinations, denies thought delusions. Judgment: improved. Insight: improved. Orientation to x 3. Recent and remote memory: She had blurry memories of this most recent psychotic episode, otherwise, it was good. Attention span and concentration: good Language: Albanian Fund of knowledge: full, average. Mood: euthymic. Affect: full, appropriate, congruent with mood. 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, #7 Norgestimate-Ethinyl Estradiol (Previfem Tablet) 1 Each Tablet, 1 TAB PO QHS for control, #7 Scheduled PRN Hydroxyzine HCl (Hydroxyzine HCl) 50 Mg Tablet, 50 MG PO Q4HP PRN for ANXIETY/AGITATION, #42 PLAN/FOLLOWUP ARRANGEMENTS: Follow Up Care Education Label * Smoking Cessation * Mental Health [facility] * Smoking Cessation [facility] Smoking Cessation * Additional information see attached Follow Up Care Education Label * Mental Health Appt 1 * Mental Health [facility] * Established With This Provider Yes * Address of Clinic or Practice [address] [place] [address] * Follow Up Care Education Label * Medical * Medical Follow Up [facility] * Established With This Provider Yes * Therapist DR. ESTEBAN * Date Feb 16, 2019 * Time 09:00 * Address of Clinic or Practice [address] [place] [address] * The amount of time spent in the coordination of care for this patient was approximately 30 minutes. 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
== END 2019-02-02 18:26 | disposition home or self-care (01) | DRG 751 ==
LOC: M ED 16:02 → M ED INP 21:43 → M PSY 01-28 01:58
PROVIDERS: ADMIT Psychiatry & Neurology Psychiatry; ATTEND Psychiatry & Neurology Psychiatry
DX: F29 Unspecified psychosis not due to a substance or known physiological condition (principal); E11.9 Type 2 diabetes mellitus without complications; I10 Essential (primary) hypertension; F12.90 Cannabis use, unspecified, uncomplicated; F19.94 Other psychoactive substance use, unspecified with psychoactive substance-induced mood disorder; Z79.899 Other long term (current) drug therapy; F41.9 Anxiety disorder, unspecified; G47.00 Insomnia, unspecified

== ENCOUNTER → 2019-08-26 | Outpatient (REF) | payer BC ==
[~2019-08-26] MED LIST: ABIL1TAB11 PO; ALPR0.25 PO; BENZ0.5T23 PO; FLUO10CA15 PO; HYDR1TAB33 PO; LISI10TA15 PO; METF-791 PO; METF10004 PO; PREVTAB2 PO; b/p med; bcp; xanax
== END ==
LOC: M LAB LCGH 11:19
DX: Z12.4 Encounter for screening for malignant neoplasm of cervix (principal)

== ENCOUNTER → 2020-10-21 | Outpatient (CLI) | payer BC ==
[~2020-10-21] MED LIST changes: -FLUO10CA15 PO; +FLUO10CA16 PO; -METF-791 PO; +METF-838 PO
== END ==
LOC: M LABSMTC 09:37
PROVIDERS: ATTEND Anesthesiology
DX: Z01.812 Encounter for preprocedural laboratory examination (principal); Z20.822 Contact with and (suspected) exposure to COVID-19

== ENCOUNTER 2020-10-26 09:36 | Day surgery (SDC) | payer BC ==
[~2020-10-26] VITALS: Ht 175.3 cm; Wt 112.5 kg
--- OUTSIDE RECORDS SUMMARY | 2020-10-26 09:42 | CCD | Continuity of Care Document ---
Author Author Giselle ARGUELLES MD Organization Unknown Address [address] [address] Phone [phone] Care Team Providers Care Fire Hydrant Mechanic Name Role Phone Belén Ordonez M.D. [facility] [phone] Damion Ramirez M.D. [facility] [phone] [facility] Unavailable Problems Description No Information Available Social History Type Date Description Comments Sex Unknown ETOH Use Denies alcohol use Tobacco Use Start: Unknown Non Smoker Recreational Drug Use Denies Drug Use Allergies, Adverse Reactions, Alerts Description No Known Drug Allergies Medications Active Medications SIG Qnty Indications Ordering Provide r Date Estarylla 0.25-35mg-mcg Tablets Take One Tablet By Mouth Once Daily Unknown Lisinopril 10mg Tablets Take One Tablet By Mouth Every Day Unknown Metformin HCL 1000mg Tablets Take 1 Tablet By Mouth Once Daily Unknown Phentermine HCL 37.5mg Tablets Take One Tablet By Mouth Every Morning For Weight Loss Maximum Daily Dose 1 Unknown History Medications Topamax 25mg Tablets 1 by mouth every day 30tabs Hebert Arguelles MD 07/27/2020 - 020 Immunizations Description No Information Available Vital Signs Date Vital Result Comment 09/02/2020 7:06am Height 69 inches 5'9" Weight 246.00 lb BMI (Body Mass Index) 36.3 kg/m2 [place] Body Weight 145 lb Weight 111.586 kg BSA (Body Surface Area) 2.26 m2 07/27/2020 8:57am Height 69 inches 5'9" Weight 246.00 lb BMI (Body Mass Index) 36.3 kg/m2 [place] Body Weight 145 lb Weight 111.586 kg BSA (Body Surface Area) 2.26 m2 Results Description No Information Available Procedures Description No Information Available Medical Devices Description No Information Available Encounters Type Date Location Provider Dx Diagnosis Office Visit 07/27/2020 9:00a [facility] Hebert Arguelles MD J32.4 Chronic pansinusitis G43.019 Migraine w/o aura, intractab le, without status migrainosus Assessments Date Code Description Provider 07/27/2020 J32.4 Chronic pansinusitis Hebert Arguelles MD 07/27/2020 G43.019 Migraine without aur a, intractable, without status migrainosus Hebert Arguelles MD Plan of Treatment No Information Available Functional Status Description No Information Available Mental Status Description No Information Available Referrals Refer to Dr Reason for Referral Status Appt Hebert Arguelles M.D. chronic sinusitis Scheduled 07/18/[address] [place] [phone]
--- OUTSIDE RECORDS SUMMARY | 2020-10-26 09:42 | CCD | Continuity of Care Document ---
Author Author Giselle ARGUELLES MD Organization Unknown Address [address] [address] Phone [phone] Care Team Providers Care Web Consultant Name Role Phone Belén Ordonez M.D. [facility] [phone] Damion Ramirez M.D. [facility] [phone] AUT[facility] Unavailable Central Scheduling AUTM [phone] Problems Description No Information Available Social History [...] Available Vital Signs Date Vital Result Comment 10/21/2020 7:13am Height 69 inches 5'9" Weight 246.00 lb BMI (Body Mass Index) 36.3 kg/m2 [place] Body Weight 145 lb Weight 111.586 kg BSA (Body Surface Area) 2.26 m2 09/02/2020 7:06am Height 69 inches 5'9" Weight 246.00 lb BMI (Body Mass Index) 36.3 kg/m2 [place] Body Weight 145 lb Weight 111.586 kg BSA (Body Surface Area) 2.26 m2 Results Description No Information Available Procedures Description No Information Available Medical Devices Description No Information Available Encounters Type Date Location Provider Dx Diagnosis Office Visit 09/02/2020 7:00a [facility] Hebert Arguelles MD J32.0 Chronic maxillary sinusitis G43.019 Migraine w/o aura, intractab le, without status migrainosus Office Visit 07/27/2020 9:00a [facility] Hebert Arguelles MD J32.4 Chronic pansinusitis G43.019 Migraine w/o aura, intractab le, without status migrainosus Assessments Date Code Description Provider 09/02/2020 J32.0 Chronic maxillary sinusitis Fabiano Arguelles MD 09/02/2020 G43.019 Migraine without aur a, intractable, without status migrainosus Hebert Arguelles MD 07/27/2020 J32.4 Chronic pansinusitis Hebert Arguelles MD 07/27/2020 G43.019 Migraine without aur a, intractable, without status migrainosus Hebert Arguelles MD Plan of Treatment Future Appointment(s):* 11/03/2020 10:15 am - Hebert Arguelles MD at [facility]/ [facility] * 10/26/2020 12:25 pm - Hebert Arguelles MD at [facility] Functional Status Description No Information Available Mental Status Description No Information Available Referrals Refer to Dr Reason for Referral Status Appt Hebert Arguelles M.D. chronic sinusitis Scheduled 07/18/[address] [place] [address] [phone]
--- OUTSIDE RECORDS SUMMARY | 2020-10-26 09:42 | CCD | Continuity of Care Document ---
Author Author [facility] Address [address] [place] [address] Phone Support Name Relationship Address Phone Susie Ramirez II [place] [address] Luis F Florian [facility] [address] [place] [address] Cornel Jayyn PRS [address] [place] [address] Doctor Provided, Family No PRS Unknown [employer] [employer] [facility] Medicine Occupation PRS [address] [place] [address] Unavailable Shira Santiago PRS [address] [place] [address] Richard, Cameron PRS [address] [place] [address] Primo, Gonzalo PRS [address] [place] [address] Allergies, Adverse Reactions, Alerts No known allergies. Medications Medication Status Dose Units Route Directions Qty Days Start Date End Date Instructions Aripiprazole (Abilify) 5 mg tablet D iscontinued 5 MG PO 2 Times Per Day February 24, 2019 1:26 pm April 02, 2019 8:22am Metformin Discontinued 1 000 MG PO Once Per Day February 25, 2019 7:27am October 07, 2019 7:58am Norgestimate-Ethinyl Estradiol (Sprintec (28)) 0.25-35 mg-mcg tablet Discontinued 1 TAB PO Once Per Day February 25, 2019 7:30am January 19, 2020 1:52pm Fluoxetine Discontinued 10 MG PO Once Per Day August 26, 2019 1:46pm February 24, 2020 2:09pm tuberculin PPD Discontinued 0.1 ML ID 1 Time/Once 0.1 April 02, 2019 8:08am April 02, 2019 8:32am tuberculin PPD Discontinued 0.1 ML ID 1 Time/Once 0.1 April 09, 2019 7:56am April 09, 2019 7:56am Phentermine Discontinued 37.5 MG PO Once Per Day 30 February 24, 2020 3:07pm May 06, 2020 10:50am take 1 tab by mouth daily as directed Betamethasone Valerate Active 1 APPLIC TOP Three times a day 15 August 08, 2020 8:39am APPLY A THIN LAYER TOPICALLY TO LIP RASH 3 X'S A DAY NEEDED DIRECTED Phentermine Discontinued 37.5 MG PO Every Morning 30 August 08, 2020 9:09am August 31, 2020 10:43am Ibuprofen Discontinued 8 00 MG PO Three times a day PRN 60 July 08, 2014 7:16am August 02, 2015 1:04pm Docusate Sodium Discontinued 100 MG PO Three times a day 90 July 08, 2014 7:16am October 26, 2014 12:47pm Ferrous Sulfate Discontinued 324 MG PO Once Per Day 60 July 08, 2014 7:16am October 26, 2014 12:47pm Metformin Discontinued 1 000 MG PO At Bedtime October 26, 2014 12:46pm May 31, 2016 8:32am Oxycodone-Acetaminophen Discontinued 1 TAB PO Every 4 hours 30 October 27, 2014 8:42am August 02, 2015 1:04pm Metformin (Glucophage) 1,000 MG tablet Discontinued 1000 MG PO Once Per Day July 14, 2016 4:07pm February 26, 2017 11:42am Docusate Sodium (Colace) 100 MG/10 ML liquid Discontinued 100 MG PO 2 Times Per Day 60 July 16, 2016 8:20am February 24, 2019 1:25pm Ascorbate Calcium (Vitamin C) Discontinued 500 MG PO Three times a day 90 July 16, 2016 8:21am October 15, 2017 8:11am Methylergonovine (Methergine) 0.2 MG tablet Discontinued 0.2 MG PO Every 6 hours 14 July 16, 2016 8:22am July 23, 2016 11:44am Ibuprofen Discontinued 8 00 MG PO Every 8 hours July 16, 2016 8:24am September 04, 2016 4:11pm Ascorbate Calcium (Vitamin C) Discontinued 500 MG PO Once Per Day October 15, 2017 8 :11am February 24, 2020 2:09pm Oxycodone-Acetaminophen Discontinued 1 TAB PO Every 4 hours October 15, 2017 9:41am February 13, 2018 2:26pm Norgestimate-Ethinyl Estradiol (Sprintec (28)) 0.25-35 mg-mcg tablet Active 1 TAB PO daily May 29, 2020 8:31pm Phentermine Discontinued 37.5 MG PO Every Morning May 29, 2020 8:31pm June 09, 2020 1:26pm Metformin Active 1000 MG PO Once Per Day May 29, 2020 8:31pm Amoxicillin-Pot Clavulanate (Augmentin) 875-125 mg tab let Active 1 TAB PO 2 Times Per Day May 30, 2020 3:02pm Triamcinolone Acetonide Discontinued 45 GM EXT 2 Times Per Day 1 July 26, 2011 5:18pm December 26, 2012 7:57am Metformin (Glucophage) 500 mg tablet Discontinued 2 TAB PO O nce Per Day 0 December 26, 2012 7:56am July 08, 2014 9:39am Acetaminophen (Tylenol Extra Strength) 500 mg tablet Discontinued 1000 MG PO Every 4 Hours 0 July 27, 2013 8:45am June 172013 9:39am Progesterone Micronized (Prometrium) 200 mg capsule Discontinued 200 MG PO 0 July 27, 2013 8:45am July 08, 2014 9:39am null (TEA) Tablet Discontinued TAB PO Once Per Day 0 July 27, 2013 8:46am July 08, 2014 9:39am Norgestimate-Ethinyl Estradiol (Sprintec 28 Day Tablet) 1 EACH tablet Discontinued 1 TAB PO Once Per Day January 16, 2016 3:13pm May 31, 2016 8:34am Norgestimate-Ethinyl Estradiol (Sprintec 28 Day Tablet) 1 EACH tablet Discontinued 1 TAB PO Once Per Day January 16, 2016 3:18pm January 16, 2016 3 :18pm Pnv [id number] Fumarate-Fa () 1 EACH table t Discontinued 1 EACH PO Once Per Day January 16, 2016 3:18pm September 04, 2016 4:11pm Metformin Discontinued 1 TAB PO 2 Times Per Day May 31, 2016 8:32am July 14, 2016 4:07pm Progesterone Micronized (Prometrium) 200 MG capsule Discontinued 200 MG PO At Bedtime May 31, 2016 8:34am July 16, 2016 8:19am Take until 12 weeks of Levothyroxine Discontinued 25 MCG PO Once Per Day June 27, 2016 12:51pm July 16, 2016 8:19am Norethindrone-E.Estradiol-Iron (Microges tin Fe 1-20 Tablet) 1 EACH tablet Discontinued 1 EACH PO Once Per Day September 04, 2016 5:15pm November 12:36pm [id number] Acid ( Multi Tablet) 1 EACH tablet Discontinued 1 EACH PO Once Per Day September 04, 2016 5:15pm September 182017 8:10am Norgestimate-Ethinyl Estradiol (Sprintec 28 Day Tablet) 1 EACH tablet Discontinued 1 EACH PO Once Per Day November 27, 2016 12:38pm September 032016 4:01pm take active pills only. Metformin (Glucophage) 1,000 MG tablet Discontinued 1000 MG PO Once Per Day February 26, 2017 11:42am October 25, 2017 3:41pm Norgestimate-Ethinyl Estradiol (Sprintec 28 Day Tablet) 1 EACH tablet Discontinued 1 EACH PO Once Per Day September 03, 2017 4:01pm February 7:06am take active pills only. Norgestimate-Ethinyl Estradiol (Previfem Tablet) 1 EACH tablet Discontinued 1 TAB PO Once Per Day February 03, 2018 7:23am February 13, 2018 2:26pm Lisinopril-Hydrochlorothiazide Active 1 TAB PO Once Per Day February 13, 2018 2:12p m Potassium Gluconate Discontinued 99 MG PO February 13, 2018 2:26pm August 26, 2019 1:46pm [id number] Fum-Folic Acid-Dss Discontinue d 1 TAB PO Once Per Day February 13, 2018 2:26p m February 24, 2019 1:26pm Metformin Discontinued 2 TAB PO At Bedtime February 17, 2018 1:59pm July 16, 2018 5:45pm Norgestimate-Ethinyl Estradiol (Sprintec 28 Day Tablet) 1 EACH tablet Discontinued 1 EACH PO Once Per Day February 24, 2018 7:06am January 14, 2019 6:57am TAKE 1 TAB BY MOUTH ACTIVE TABS ONLY DIRECTED Norgestimate-Ethinyl Estradiol (Sprintec 28 Day Tablet) 1 EACH tablet Discontinued 1 EACH PO Once Per Day February 24, 2018 7:06am February 25 7:30am TAKE 1 TAB BY MOUTH ACTIVE TABS ONLY DIRECTED Metformin Discontinued 2 TAB PO At Bedtime July 16, 2018 5:45pm July 22, 2018 8:54am Metformin Discontinued 1 TAB PO Once Per Day August 19, 2018 2:17pm January 14, 2019 8:29am Metformin Discontinued 1 TAB PO Once Per Day August 19, 2018 2:17pm February 25, 2019 7:28am Zolpidem (Ambien) 5 mg tablet Discontinued 5 MG PO At Bedtime January 26, 2019 8:50 am January 27, 2019 7:45am Zolpidem (Ambien) 5 mg tablet Discontinued 5 MG PO At Bedtime January 27, 2019 7:44 am April 02, 2019 8:22am Metformin Discontinued 1 000 MG PO Once Per Day October 07, 2019 7:58am March 29, 2020 2:46pm Norgestimate-Ethinyl Estradiol (Sprintec (28)) 0.25-35 mg-mcg tablet Discontinued 1 TAB PO daily January 19, 2020 1:52pm May 29, 2020 8:31pm Norgestimate-Ethinyl Estradiol (Sprintec (28)) 0.25-35 mg-mcg tablet Discontinued 1 TAB PO Once Per Day January 27, 2020 3:32pm April 21 9:06am TAKE 1 TAB BY MOUTH DAILY DIRECTED Metformin Discontinued 1 000 MG PO Once Per Day March 29, 2020 2:46pm May 29, 2020 8:31pm Phentermine Discontinued 37.5 MG PO Every Morning May 06, 2020 10:49am May 29, 2020 8:31pm Phentermine Discontinued 37.5 MG PO Every Morning June 09, 2020 1:25pm August 08, 2020 9:11am Phentermine Active 37.5 MG PO Every Morning August 31, 2020 10:43am Metformin Active 1000 MG PO daily October 12, 2020 12:32pm Problems Active Problems Medical Problem Onset Date Status Hx Leep Active Delivery normal Active Dysplasia of cervix October 27, 2014 Active Encounter for well woman exam with abnormal findings Active Educated about management of weight Active PCOS (polycystic ovarian syndrome) Active Ribs, multiple fractures Active Skin mole Active Anemia Active Injury of ligament of left knee Active Hypothyroidism Active Fibrocystic breast disease (FCBD) in female Active Angular cheilitis due to nutritional deficiency Active Inactive/Resolved Problems Medical Problem Onset Date Status Miscarriage Resolved Incomplete miscarriage with blood clot Resolved Incomplete with complication Resolved Procedures Procedure Date Performed Status Xray Chest 2 view PA/LAT May 172019 2:39pm completed CT Abd/pel w/ contrast May 4:35pm completed US Abd single organ/quadrant Septemb 2019 1:33pm completed Blood Culture May 29, 2020 completed Respiratory Panel (PCR) May 292019 completed Relevant Diagnostic Tests and/or Laboratory Data Laboratory Results Test Date/Time Result Interpretation Reference Range Result Comment Performing Site White Blood Count May 30 4:05am 8.2 10e3/uL 4.45-10.71 [facility], [address] [place] [address] 37901 Red Blood Count May 30, 2020 4:05a m 3.83 10e6/uL 4.20-5.40 [facility], [address] [place] [address] 96051 Hemoglobin May 30, 2020 4:05am 10.7 g/dL 10.7-15.4 [facility], [address] [place] [address] 22446 Hematocrit May 30, 2020 4:05am 33.5 % 37-47 [facility], [address] [place] [address] 59280 Mean Corpuscular Volume May 302019 4:05am 87.5 fl 80-96 [facility], [address] [place] [address] 18470 Mean Corpuscular Hemoglobin Septembe r 2019 4:05am 27.9 pg 27-31 [facility], [address] [place] [address] 73852 Mean Corpuscular Hemoglobin Concent May 30, 2020 4:05am 31.9 g/dl 33-37 [facility], [address] [place] [address] 72254 Red Cell Distribution Width Septembe r 2019 4:05am 14 % 11-15 [facility], [address] [place] [address] 15549 Platelet Count May 30, 2020 4:05am 243 10e3/ul 130-472 [facility], [address] [place] [address] Mean Platelet Volume May 30, 2020 4:05am 10.6 fl 9.1-13.1 [facility], [address] [place] [address] Neutrophils (%) (Auto) May 4:05am 52.5 % 41-77 [facility], [address] [place], [place] [id number] Absolute Neutrophil May 30, 2020 4:05am 4.3 # 1.7-7.6 [facility], [address] [place] [address] Lymphocytes (%) (Auto) May 4:05am 36.3 % 14-46 [facility], [address] [place] [address] Lymphocytes # (Auto) May 30, 2020 4:05am 3.0 # 0.6-4.6 [facility], [address] [place], [place] [id number] Monocytes (%) (Auto) May 30, 2020 4:05am 8.3 % 4-12 [facility], [address] [place], [place] [id number] Monocytes # May 30, 2020 4:05am 0.7 # 0.2-1.2 [facility], [address] [place] [address] Eosinophils (%) (Auto) May 4:05am 1.8 % 0-7 [facility], [address] [place] [address] 45025 Absolute Eosinophils (CBC) May 30, 2020 4:05am 0.2 # 0.0-0.5 [facility], [address] [place] [address] Basophils (%) (Auto) May 30, 2020 4:05am 0.6 % 0.4-1.3 [facility], [address] [place] [address] 32855 Absolute Basophils (CBC) May 172019 4:05am 0.1 # 0.0-0.2 [facility], [address] [place] [address] Immature Granulocyte % (Auto) Septem 2019 4:05am 0.5 % 0-2 [facility], [address] [place] [address] Absolute Immature Granulocyte (auto May 30, 2020 4:05am 0.0 # 0-0.1 [facility], [address] [place] [address] 61182 Add Manual Differential May 302019 4:05am No [facility], [address] [place] [address] 07605 Differential Total Cells Counted Sep tember 2019 2:05pm 100 [facility], [address] [place] [address] 58108 Neutrophils (Manual) May 29, 2020 2:05pm 77 % 41-77 [facility], [address] [place] [address] 79846 Band Neutrophils May 29 0 2:05pm 2 % 0-5 [facility], [address] [place] [address] 77949 Lymphocytes (Manual) May 29, 2020 2:05pm 14 % 14-46 [facility], [address] [place] [address] 52709 Monocytes (Manual) May 29 020 2:05pm 6 % 4-12 [facility], [address] [place] [address] 13374 Eosinophils (Manual) May 29, 2020 2:05pm 1 % 0-7 [facility], [address] [place] [address] 86864 Platelet Estimate May 29 2:05pm Appears normal NORMAL [facility], [address] [place] [address] 35425 RBC Morphology 2 May 29 0 2:05pm Appears normal NORMAL [facility], [address] [place] [address] 23985 Sedimentation Rate, Westergren Septe mber 2019 2:05pm 17 mm/hr 0-20 [facility], [address] [place] [address] 65017 Urine Color May 29, 2020 3:00pm Yellow [facility], [address] [place] [address] 47400 Urine Appearance May 29 0 3:00pm Clear CLEAR [facility], [address] [place] [address] 74175 Urine pH May 29, 2020 3:00pm 7.0 [facility], [address] [place] [address] 34020 Urine Specific [place] May 3:00pm 1.010 [facility], [address] [place] [address] 32403 Urine Leukocyte Esterase May 172019 3:00pm Negative NEGATIVE [facility], [address] [place] [address] 67906 Urine Nitrate May 29, 2020 3:00pm Negative NEGATIVE [facility], [address] [place] [address] 66898 Urine Protein May 29, 2020 3:00pm Negative NEGATIVE [facility], [address] [place] [address] 97778 Urine Glucose May 29, 2020 3:00pm Negative NEGATIVE [facility], [address] [place] [address] 72224 Urine Ketones May 29, 2020 3:00pm Trace NEGATIVE [facility], [address] [place] [address] 79314 Urine Urobilinogen May 29 020 3:00pm 0.2 eu/dl [facility], [address] [place] [address] 95191 Urine Bilirubin May 29, 2020 3:00p m Negative NEGATIVE [facility], [address] [place] [address] 94780 Urine Blood May 29, 2020 3:00pm Negative NEGATIVE [facility], [address] [place] [address] 48737 Add Urine Microanalysis May 292019 3:00pm No [facility], [address] [place] [address] 84233 Blood Urea Nitrogen May 30, 2020 4:05am 6 mg/dL 9-23 [facility], [address] [place] [address] 96321 Sodium Level May 30, 2020 4:05am 140 mmol/L 132-146 [facility], [address] [place] [address] 73185 Potassium Level May 30, 2020 4:05a m 4.0 mmol/L 3.5-5.5 [facility], [address] [place] [address] 68398 Chloride Level May 30, 2020 4:05am 109 mmol/l 99-109 [facility], [address] [place] [address] 98211 Carbon Dioxide Level May 30, 2020 4:05am 26 mmol/l 20-31 [facility], [address] [place] [address] 90417 Anion Gap May 30, 2020 4:05am 9 mmol/l 8-16 [facility], [address] [place] [address] 44808 Glucose Level May 30, 2020 4:05am 94 mg/dL 74-106 [facility], [address] [place] [address] 21648 Creatinine May 30, 2020 4:05am 0.8 mg/dL 0.5-1.1 [facility], [address] [place] [address] 65659 Glomerular Filtration Rate Calc May 4:05am Greater than 60 ml/min ABOVE 60 [facility], [address] [place] [address] Alanine Aminotransferase (ALT/SGPT) May 30, 2020 4:05am 28 U/L 10-49 [facility], [address] [place] [address] 24151 Aspartate Amino Transf (AST/SGOT) Se pt2019 4:05am 13 U/L 0-33 [facility], [address] [place] [address] 76116 Alkaline Phosphatase May 30, 2020 4:05am 57 U/L 45-129 [facility], [address] [place] [address] 16714 Calcium Level May 30, 2020 4:05am 8.2 mg/dL 8.5-10.1 [facility], [address] [place] [address] 48666 Total Bilirubin May 30, 2020 4:05a m 0.5 mg/dL 0.3-1.2 [facility], [address] [place] [address] 75814 Albumin May 30, 2020 4:05am 3.0 g/dL 3.2-4.8 [facility], [address] [place] [address] 41437 Serum Total Protein May 30, 2020 4:05am 6.0 g/dL 5.7-8.2 [facility], [address] [place] [address] 87500 Lactic Acid Level May 30 4:05am 1.9 mmol/L 0.5-2.2 [facility], [address] [place] [address] 94212 Urine Marijuana (THC) Screen 2019 3:00pm Negative ng/mL Cutoff 50 [facility], [address] [place] [address] Urine Phencyclidine Screen May 29, 2020 3:00pm Negative ng/mL Cutoff 25 [facility], [address] [place] [address] Urine Cocaine Screen May 29, 2020 3:00pm Negative ng/mL Cutoff 150 [facility], [address] [place] [address] 41529 Urine Methamphetamines Screen 2019 3:00pm Negative ng/mL Cutoff 500 [facility], [address] [place] [address] Urine Opiates Screen May 29, 2020 3:00pm Negative ng/mL Cutoff 100 [facility], [address] [place] [address] Urine Amphetamines Screen May 29, 2020 3:00pm Presumptive positive ng/mL Cutoff 500 This test is for screening purposes o nly. Confirmation of positive results will be sent to our Reference lab only at the Physician's request. [facility], [address] [place] [address] 81457 Urine Benzodiazepines Screen Sept2019 3:00pm Negative ng/mL Cutoff 150 [facility], [address] [place] [address] Ur Tricyclic Antidepressants Screen May 29, 2020 3:00pm Negative ng/mL Cutoff 300 [facility], [address] [place] [address] Urine Methadone Screen May 3:00pm Negative ng/mL Cutoff 200 [facility], [address] [place] [address] Urine Barbiturates May 29 3:00pm Negative ng/mL Cutoff 200 [facility], [address] [place] [address] Urine Oxycodone Screen May 3:00pm Negative ng/mL Cutoff 100 [facility], [address] [place] [address] Urine Propoxyphene Screen May 29, 2020 3:00pm Negative ng/mL Cutoff 300 [facility], [address] [place] [address] Urine Buprenorphine Screen May 29, 2020 3:00pm Negative ng/mL Cutoff 10 [facility], [address] [place] [address] C-Reactive Protein May 29 6:45pm 21.6 mg/L 0.0-5.0 [facility], [address] [place] [address] Troponin I May 29, 2020 2:05pm Less than 0.015 ng/mL 0.00-0.09 Less than 0.09 NG/ML Negative0.10 - 0.77 NG/ML High Risk0.78 NG/ML or Greater Positive The WHO defined the cutoff (definition for diagnosis of [place])for this method as 0.78 ng/ml. [facility], [address] [place] [address] Thyroid Stimulating Hormone (TSH) Se ptember 2020 2:05pm 2.30 uIU/mL 0.35-5.50 [facility], [address] [place] [address] Serum Test, Qualitative Se pt2019 2:05pm Negative NEGATIVE [facility], [address] [place] [address] Surgical Pathology Specimen March 9:45am See scanned report [facility], [address] [place] [address] 53809 Hemoglobin A1c May 30, 2020 4:05am 5.4 % 4.0-6.0 The following ranges may be used for interpretation of results: HGBA1C degree of glucose control: Greater than 8%: Action Suggested * Less than 7%: Goal of Diabetic Therapy Less than 6%: Normal Factors such as duration of diabetes, adherence to therapyand the age of the patient should also be considered inassessing the degree of blood glucose control. * High risk of developing honing machine operator complications such asretinopathy, nephropathy, neuropathy, cardiopathy, etc. Some danger of hypoglycemic reaction in Type I diabetics.Some glucose intolerant individuals and "Sub Clinical"diabetics may demonstrate HGBA1C levels in this area. [facility], [address] [place] [address] Estimated Average Glucose (eAG) May 4:05am 108 mg/dl An A1C of 7% - the goal of diabetic ther apy - is equivalentto an EAG of 154 mg/dl. [facility], [address] [place] [address] Microbiology Results Procedure Source Result Collection Date/Time Result Date/Time Result Comment Performing Site Blood Culture Venous blood No growth. May 29, 2020 3:45pm Septembe r 2019 3:51pm [facility], [address] [place] [address] Respiratory Panel (PCR) Nasopharyngeal No Organisms Detected May 29, 2020 7:32pm May 29, 2020 8:25pm [facility], [address] [place] [address] Diagnostic Imaging Reports Report Dictated Date/Time Dictated By Status Radiology Report May 29 0 4:11pm Laney Herrera MD completed [place] [address] [place] [id number] [phone] NAME SEX PT STATUS ACCOUNT NUMBER Aftab Guzman REG ER [id number] ORDERING PHYSICIAN LOCATION MEDICAL RECORD NO. Cameron Ramos MD ER [id number] ATTENDING PHYSICIAN DATE OF DATE OF EXAM/TIME Belén Jay MD 1985 05/29/201538 TYPE / EXAM Xray Chest 2 view PA/LAT REASON FOR EXAM Low blood pressure Clinical History/Indication for Exam: Low blood pressure RADIOGRAPHS OF THE CHEST 2 VIEWS INDICATION: Low blood pressure COMPARISON: No relevant prior studies available. FINDINGS: Lungs: Unremarkable. No consolidation. Pleural space: Unremarkable. No pneumothorax. Heart: Unremarkable. No cardiomegaly. Mediastinum: Unremarkable. Bones/joints: Unremarkable. IMPRESSION: Normal chest x-rays. REPORT SIGNATURE ON FILE 05/29/2020 (16:11 Eastern Time ) Signed by: Laney Hererra M.D. Reported By Laney Herrera MD on 05/29/201610 Signed By Laney Herrera MD on 05/29/201610 Date Time CC: Belén Jay MD; Laney Herrera MD Techn: MORSA Trans Dt/Tm: Trans by: DT Prt Dt/Tm: : Total DLP = 0.00 mGy-cm Fluoroscopy Time (in secs): Radiology Report May 29 6:05pm Anthony Rhoades MD [place] [id number] [place] [id number] [phone] NAME SEX PT STATUS ACCOUNT NUMBER Aftab Guzman [facility] ER [id number] ORDERING PHYSICIAN LOCATION MEDICAL RECORD NO. Cameron Ramos MD ER [id number] ATTENDING PHYSICIAN DATE OF DATE OF EXAM/TIME Belén Jay MD 1985 05/29/20 173 TYPE / EXAM CT Abd/pel w/ contrast REASON FOR EXAM Leukocytosis, diffuse abdominal tenderness Clinical History/Indication for Exam: Leukocytosis, diffuse abdominal tenderness CT ABDOMEN AND PELVIS WITH INTRAVENOUS CONTRAST INDICATION: Leukocytosis, diffuse abdominal tenderness TECHNIQUE: Axial computed tomography images of the abdomen and pelvis with intravenous contrast. Sagittal and coronal reformatted images were created and reviewed. This CT exam was performed using one or more of the following dose reduction techniques: automated exposure control, adjustment of the mA and/or kV according to patient size, and/or use of iterative reconstruction technique. COMPARISON: No relevant prior studies available. FINDINGS: Lung bases: Unremarkable. No mass. No consolidation. ABDOMEN: Liver: The liver is fatty infiltrated. Gallbladder and bile ducts: Unremarkable. No calcified stones. No ductal dilation. Pancreas: Unremarkable. No mass. No ductal dilation. Spleen: Unremarkable. No splenomegaly. Adrenals: Unremarkable. No mass. Kidneys and ureters: Unremarkable. No solid mass. No hydronephrosis. Stomach and bowel: Unremarkable. No obstruction. No mucosal thickening. PELVIS: Appendix: No findings to suggest acute appendicitis. Bladder: Unremarkable. No mass. Reproductive: Unremarkable as visualized. ABDOMEN and PELVIS: Intraperitoneal space: Unremarkable. No free air. No significant fluid collection. Bones/joints: No acute fracture. No dislocation. Soft tissues: Unremarkable. Vasculature: Unremarkable. No abdominal aortic aneurysm. Lymph nodes: Unremarkable. No enlarged lymph nodes. IMPRESSION: 1. No acute findings. 2. Fatty liver. Automatic exposure control was used as a dose lowering technique. REPORT SIGNATURE ON FILE 05/29/2020 (18:05 Eastern Time ) Signed by: Anthony Rhoades M.D. Reported By Anthony Rhoades MD on 05/29/201804 Signed By Anthony Rhoades MD on 05/29/201804 Date Time CC: Belén Jay MD; Anthony Rhoades MD Techn: MORSA Trans Dt/Tm: Trans by: DT Prt Dt/Tm: : Total DLP = 998.00 mGy-cm : Total Radiation Dose = 14.9700 mSv Lifetime Dose: 14.9700 mS v Radiology Report May 30 0 3:31pm Caterina Aguilar MD completed [facility] [address] [place] [address] [phone] NAME SEX PT STATUS ACCOUNT NUMBER AFTAB GUZMAN ADM LILIA [id number] ORDERING PHYSICIAN LOCATION MEDICAL RECORD NO. Jennifer PORTILLO [id number] ATTENDING PHYSICIAN DATE OF DATE OF EXAM/TIME Belén Jay MD 1985 05/30/20 / 1433 TYPE / EXAM US Abd single organ/quadrant REASON FOR EXAM gall bladder hypokinesia COMPARISON: CT from 05/29/2020 TECHNIQUE: Real-time sonography of the abdomen is performed. FINDINGS: GALLBLADDER: The gallbladder is normal in appearance without any gallstones or gallbladder wall thickening. Common bile duct measures 4.8mm. This is slightly prominent for a patient of this age. The sonographic Hansen's sign is negative. LIVER: Diffuse fatty infiltration of the liver is seen with no focal mass or abnormal fluid. RIGHT KIDNEY: The right kidney is normal in appearance. It measures approximately 11.5cm in long diameter and demonstrates no calculus or hydronephrosis. IMPRESSION: 1. No cholelithiasis. The CBD measures 4.8 mm which is somewhat prominent for patient of this age. If further evaluation is clinically indicated ERCP may be helpful. Hepatic steatosis. 2. No renal calculus or hydronephrosis on the right. 3. No free intraperitoneal fluid. If there are clinical concerns for gallbladder dysfunction, follow-up nuclear medicine HIDA scan may be helpful for further evaluation. Reported By Caterina Aguilar MD on 05/30/20 1531 Signed By Caterina Aguilar MD on 05/30/20 1538 Date Time CC: Belén Jay MD; Caterina Aguilar MD Techn: BUSMI Trans Dt/Tm: Trans by: DT Prt Dt/Tm: : Total DLP = 0.00 mGy-cm : Total Radiation Dose = 0.0000 mSv Lifetime Dose: 14.9700 mSv Health Concerns Health Concerns may be documented in an alternate section. Advance Directives Advance Directive Response Recorded Date/Time Advanced Directive No No 2019 8:37am MOLST No August 08, 2020 8:37am Advance Directives on File or in chart? No August 08, 2020 8:37am Does Patient have a DNR? No August 08, 2020 8:37am Healthcare Proxy No Yuliana toddgiorgi 2019 8:37am Living Will No August 08, 2020 8:37am Chief Complaint and Reason for Visit Chief Complaint PCOS Medication check Skin complaints SKIN LESION LT WRIST PRE [facility] 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 Reason for Visit Educated about walker gement of weight Skin mole Hypothyroidism PCOS (polycystic ovarian syndrome) Angular cheilitis due to nutritional deficiency Educated about management of weight PCOS (polycystic ovarian syndrome) Encounters Encounter Location(s) Ar rival/Admit Date Discharge/Depart Date Provider(s) Departed Physician/Provider Office Visit [facility] February 24, 2020 1:14pm February 24, 2020 2:31pm Damion grewal II, MD Departed Physician/Provider Office Visit [facility] March 30, 2020 10:40am March 30, 2020 11:23am Damion conde II, MD Departed Physician/Provider Office Visit [facility] Surgery April 12, 2020 9:11am April 12, 2020 9:54am Tomi Robledo Registered Referred [facility] Drop Off April 12, 2020 2:39pm Luis F Florian MD Registered Referred [facility]Occupational Medicine April 20, 2020 11:00pm [facility] Departed Physician/Provider Office Visit [facility] April 21, 2020 8:50am April 21, 2020 9:27am Shira galvez Discharged Inpatient [facility] May 29, 2020 6:54pm [facility] Gonzalo Tillman MD Departed Physician/Provider Office Visit [facility] August 08, 2020 7:59am August 08, 2020 8:41am Damion Ramirez II, MD Departed Physician/Provider Office Visit [facility] October 17, 2020 8:04am October 17, 2020 8:23am Damion castañeda II, MD Recent Diagnosis Onset Date Educated about management of weight Skin mole Hypothyroidism PCOS (polycystic ovarian syndrome) Angular cheilitis due to nutritional deficiency Educated about management of weight PCOS (polycystic ovarian syndrome) Assessments Diagnosis Onset Date Res olution Status Educated about management of weight acute Skin mole acute Hypothyroidism noneactive PCOS (polycystic ovarian syndrome) noneactive Angular cheilitis due to nutritional deficiency acute Educated about management of weight acute PCOS (polycystic ovarian syndrome) noneactive Family History Relationship Condition A ge at Onset Recorded Date/Time Not Specified Diabetes mellitus Unknown Hypertension Unknown Functional Status Observation Response Brennan e Recorded Functional Status Complete [place] May 29, 2020 8:31pm Goals Goals may be documented in an alternate section. Immunizations No Immunization Information Available Mental Status Observation Response Brennan e Recorded Cognitive Status Normal Cognition May 30, 2020 2:00pm Impairments No impairments or barriers August 08, 2020 8:37am Medical Equipment No Medical Equipment Information available Insurance Providers Guarantor AFTAB GUZMAN Address [address] [place] [address] Contact Info. Home Phone: Payer Policy Id Coverage Id Subscriber's Name Subscriber Id Effective Date Expiration Date BC/BS [facility] [id number] AFTAB Wilkinson THOMAS [id number] [facility] [id number] AFTAB L DEN[place]OW [id number] BC/BS [facility] [id number] AFTABTANYA ALBRIGHTLOW [id number] [facility] [id number] AFTAB L [place]OW [id number] Self Pay Self N/A Plan of Treatment doing well and slowly moving towards goal History and physical done. Forms completed and signed. 34 yoF with skin lesion on left wrist that is not going away. It is increasingly becoming bothersome and is here to get it removed. -Skin lesion excised and repaired as above in procedure note. Fu with pathology . referred to surgical clinic Future Tests Future scheduled test information is unavailable Pending Tests Pending diagnostic test information is unavailable Future Visits Future appointment information is unavailable Referrals to Other Providers Reason for Referral Referral Start Date Provider Provider Conta ct Information Provider Address Belén Jay MD Email: [facility] .[employer] Work Phone: [phone] [address] D22.9 - Melanocytic nevi, unspecified March 26, 2020 Abraham yun MD Work Phone: [phone] [address] Future Procedures Future procedure information is unavailable Future Medications Future medication information is unavailable Patient Instructions Sepsis (DC) Hypotension (DC) Social History Smoking Status Status Date of Observation Former smoker August 08, 2020 8: 37am Observation Status Date of Observation Not August 08, 2020 Observation Status Observation Response Brennan e of Response Smoking Status Former smoker August 08, 2020 8:37am Alcohol Use No August 08, 2020 8:37am Substance Use No Novembe r 2019 8:37am Smoking Status Former smoker August 08, 2020 8:37am When did patient quit smoking? 2013August 08, 2020 8:37am Assigned Sex Female Vital Signs Vital Reading Result Ref erence Range Collection Date/Time Height 68 [in_i] February 24, 2020 2:54pm Weight 271.25 [lb_av] February 24, 2020 2:54pm Body Temperature 98.9 [degF] 97.6-99.5 February 24, 2020 2:54pm Heart Rate 97 /min 60-100 February 24, 2020 2:54pm Respiratory rate 16 /min -February 24, 2020 2:54pm Oxygen saturation by Pulse oximetry 98 % 95- 100 February 24, 2020 2:54pm BP Systolic 148 mm[Hg] February 24, 2020 2:54pm BP Diastolic 88 mm[Hg] February 24, 2020 2:54pm BMI (Body Mass Index) 41.2 kg/m2 February 24, 2020 2:54pm Height 69 [in_i] March 30, 2020 12:24pm Weight 262.25 [lb_av] March 30, 2020 12:24pm Body Temperature 98.2 [degF] 97.6-99.5 March 30, 2020 12:24pm Heart Rate 112 /min 60-1 00 March 30, 2020 12:24pm Respiratory rate 18 /min 12-24 March 30, 2020 12:24pm Oxygen saturation by Pulse oximetry 97 % 95- 100 March 30, 2020 12:24pm BP Systolic 124 mm[Hg] March 30, 2020 12:24pm BP Diastolic 90 mm[Hg] March 30, 2020 12:24pm BMI (Body Mass Index) 38.7 kg/m2 March 30, 2020 12:24pm Height 69 [in_i] April 12, 2020 10:17am Weight 262.00 [lb_av] April 12, 2020 10:17am Body Temperature 98.0 [degF] 97.6-99.5 April 12, 2020 10:17am Heart Rate 88 /min 60-100 April 12, 2020 10:17am Respiratory rate 18 /min -April 12, 2020 10:17am BP Systolic 132 mm[Hg] April 12, 2020 10:17am BP Diastolic 88 mm[Hg] April 12, 2020 10:17am BMI (Body Mass Index) 38.7 kg/m2 April 12, 2020 10:17am Height 69 [in_i] April 21, 2020 10:05am Weight 264.12 [lb_av] April 21, 2020 10:05am Body Temperature 98.8 [degF] 97.6-99.5 April 21, 2020 10:05am Heart Rate 100 /min 60-1 April 21, 2020 10:05am Respiratory rate 18 /min -April 21, 2020 10:05am Oxygen saturation by Pulse oximetry 96 % 95- 100 April 21, 2020 10:05am BP Systolic 130 mm[Hg] April 21, 2020 10:05am BP Diastolic 82 mm[Hg] April 21, 2020 10:05am BMI (Body Mass Index) 38.9 kg/m2 April 21, 2020 10:05am Height 69 [in_i] May 30, 2020 4:04pm Weight 251.90 [lb_av] May 30, 2020 4:04pm Body Temperature 98.1 [degF] 97.6-99.5 May 30, 2020 1:00pm Heart Rate 78 /min 60-100 May 30, 2020 2:40pm Respiratory rate 20 /min -May 30, 2020 1:00pm Oxygen saturation by Pulse oximetry 97 % 95- 100 May 30, 2020 1:00pm BP Systolic 131 mm[Hg] May 30, 2020 1:00pm BP Diastolic 66 mm[Hg] May 30, 2020 1:00pm BMI (Body Mass Index) 37.2 kg/m2 May 30, 2020 4:04pm Height 69 [in_i] August 08, 2020 8:27am Weight 247.12 [lb_av] August 08, 2020 8:27am Body Temperature 98.3 [degF] 97.6-99.5 August 08, 2020 8:27am Heart Rate 96 /min 60-100 August 08, 2020 8:27am Respiratory rate 16 /min 12-24 August 08, 2020 8:27am Oxygen saturation by Pulse oximetry 97 % 95- 100 August 08, 2020 8:27am BP Systolic 128 mm[Hg] August 08, 2020 8:27am BP Diastolic 86 mm[Hg] August 08, 2020 8:27am BMI (Body Mass Index) 36.5 kg/m2 August 08, 2020 8:27am Height 69 [in_i] October 17, 2020 8:10am Hospital Discharge Instructions
--- OUTSIDE RECORDS SUMMARY | 2020-10-26 09:42 | CCD | Continuity of Care Document ---
Author Author [facility] Organization [facility] Address [address] [place] [address] Phone Support Name Relationship Address Phone Belén Jay PRS [address] [place] [address] Dorset II, A Damion PRS [address] [place] [address] Dorset II, A Damion PRS [facility] [place] [address] Doctor Provided, Family No PRS Unknown Unava ilable Luis F Florian PRS [address] [place] [address] of L.C., Medicine Occupation PRS [address] [place] [address] Unavailable Santiago, Shira PRS [address] [place] [address] RichardCameron siddiqi PRS [address] [place] [address] Primo, Gonzalo PRS [address] [place] [address] Allergies, Adverse Reactions, Alerts No known allergies. [...] Discontinued 37.5 MG PO Once Per Day February 24, 2020 3:07pm May 06, 2020 10:50am take 1 tab by mouth daily as directed Betamethasone Valerate Active 1 APPLIC TOP Three times a day 15 August 08, 2020 8:39am APPLY A THIN LAYER TOPICALLY TO LIP RASH 3 X'S A DAY NEEDED DIRECTED Ibuprofen Discontinued 8 00 MG PO Three [...] 1 TAB PO 2 Times Per Day 8 May 30, 2020 3:02pm Triamcinolone Acetonide Discontinued [...] Day September 04, 2016 5:15pm November 12:36pm [id number] Acid ( Multi Tablet) 1 EACH tablet [...] 13, 2018 2:26pm August 26, 2019 1:46pm [id number] Fum-Folic Acid-Dss Discontinue d 1 TAB PO [...] PO Once Per Day August 19, 2018 2:pm February 25, 2019 7:28am Zolpidem (Ambien) 5 [...] 2020 10:49am May 29, 2020 8:31pm Phentermine Active 37.5 MG PO Every Morning June 09, 2020 1:25pm Problems Active Problems Medical Problem Onset Date [...] Fibrocystic breast disease (FCBD) in female Active Inactive/Resolved Problems Medical Problem Onset Date Status Miscarriage Resolved Incomplete miscarriage with blood clot Resolved Incomplete with complication Resolved Procedures Procedure Date Performed Status Xray Chest 2 view PA/LAT May 172019 2:39pm completed CT Abd/pel w/ contrast May 4:35pm completed US Abd single organ/quadrant Septemb er 2019 1:33pm completed Blood Culture May 29, 2020 completed Respiratory Panel (PCR) May 292019 completed Relevant Diagnostic Tests and/or Laboratory Data Laboratory Results Test Date/Time Result Interpretation Reference Range Result Comment Performing Site White Blood Count May 30 4:05am 8.2 10e3/uL 4.45-10.71 [facility], [address] [place] [address] Red Blood Count May 30, 2020 4:05a m 3.83 10e6/uL 4.20-5.40 [facility], [address] [place] [address] 79221 Hemoglobin May 30, 2020 4:05am 10.7 g/dL 10.7-15.4 [facility], [address] [place] [address] 88374 Hematocrit May 30, 2020 4:05am 33.5 % 37-47 [facility], [address] [place] [address] 04835 Mean Corpuscular Volume May 302019 4:05am 87.5 fl 80-96 [facility], [address] [place] [address] 58996 Mean Corpuscular Hemoglobin Septembe r 2019 4:05am 27.9 pg 27-31 [facility], [address] [place] [address] 19729 Mean Corpuscular Hemoglobin Concent May 30, 2020 4:05am 31.9 g/dl 33-37 [facility], [address] [place] [address] 58112 Red Cell Distribution Width Septembe r 2019 4:05am 14 % 11-15 [facility], [address] [place] [address] 67565 Platelet Count May 30, 2020 4:05am 243 10e3/ul 130-472 [facility], [address] [place] [address] 21644 Mean Platelet Volume May 30, 2020 4:05am 10.6 fl 9.1-13.1 [facility], [address] [place] [address] 50985 Neutrophils (%) (Auto) May 4:05am 52.5 % 41-77 [facility], [address] [place] [address] Absolute Neutrophil May 30, 2020 4:05am 4.3 # 1.7-7.6 [facility], [address] [place] [address] Lymphocytes (%) (Auto) May 4:05am 36.3 % 14-46 [facility], [address] [place], [place] [id number] Lymphocytes # (Auto) May 30, 2020 4:05am 3.0 # 0.6-4.6 [facility], [address] [place], [place] [id number] Monocytes (%) (Auto) May 30, 2020 4:05am 8.3 % 4-12 [facility], [address] [place] [address] Monocytes # May 30, 2020 4:05am 0.7 # 0.2-1.2 [facility], [address] [place] [address] 89590 Eosinophils (%) (Auto) May 4:05am 1.8 % 0-7 [facility], [address] [place] [address] Absolute Eosinophils (CBC) May 30, 2020 4:05am 0.2 # 0.0-0.5 [facility], [address] [place] [address] 73401 Basophils (%) (Auto) May 30, 2020 4:05am 0.6 % 0.4-1.3 [facility], [address] [place] [address] Absolute Basophils (CBC) May 172019 4:05am 0.1 # 0.0-0.2 [facility], [address] [place] [address] 73613 Immature Granulocyte % (Auto) Septem 2019 4:05am 0.5 % 0-2 [facility], [address] [place] [address] Absolute Immature Granulocyte (auto May 30, 2020 4:05am 0.0 # 0-0.1 [facility], [address] [place] [address] 75773 Add Manual Differential May 302019 4:05am No [facility], [address] [place], [place] [address] Differential Total Cells Counted Sep tember 2019 2:05pm 100 [facility], [address] [place] [address] 09242 Neutrophils (Manual) May 29, 2020 2:05pm 77 % 41-77 [facility], [address] [place] [address] 96903 Band Neutrophils May 29 0 2:05pm 2 % 0-5 [facility], [address] [place] [address] 44476 Lymphocytes (Manual) May 29, 2020 2:05pm 14 % 14-46 [facility], [address] [place] [address] 22747 Monocytes (Manual) May 29 020 2:05pm 6 % 4-12 [facility], [address] [place] [address] 38420 Eosinophils (Manual) May 29, 2020 2:05pm 1 % 0-7 [facility], [address] [place] [address] 82702 Platelet Estimate May 29 20 2:05pm Appears normal NORMAL [facility], [address] [place] [address] 49466 RBC Morphology 2 May 29 0 2:05pm Appears normal NORMAL [facility], [address] [place] [address] 86177 Sedimentation Rate, Westergren Septe mb2019 2:05pm 17 mm/hr 0-20 [facility], [address] [place] [address] 97640 Urine Color May 29, 2020 3:00pm Yellow [facility], [address] [place] [address] 98084 Urine Appearance May 29 0 3:00pm Clear CLEAR [facility], [address] [place] [address] 47897 Urine pH May 29, 2020 3:00pm 7.0 [facility], [address] [place] [address] 28883 Urine Specific Pinson May 3:00pm 1.010 [facility], [address] [place] [address] 19013 Urine Leukocyte Esterase May 172019 3:00pm Negative NEGATIVE [facility], [address] [place] [address] 00030 Urine Nitrate May 29, 2020 3:00pm Negative NEGATIVE [facility], [address] [place] [address] 83718 Urine Protein May 29, 2020 3:00pm Negative NEGATIVE [facility], [address] [place] [address] 42125 Urine Glucose May 29, 2020 3:00pm Negative NEGATIVE [facility], [address] [place] [address] 82636 Urine Ketones May 29, 2020 3:00pm Trace NEGATIVE [facility], [address] [place] [address] 38052 Urine Urobilinogen May 29 020 3:00pm 0.2 eu/dl [facility], [address] [place] [address] 52728 Urine Bilirubin May 29, 2020 3:00p m Negative NEGATIVE [facility], [address] [place] [address] 82360 Urine Blood May 29, 2020 3:00pm Negative NEGATIVE [facility], [address] [place] [address] 61836 Add Urine Microanalysis May 292019 3:00pm No [facility], [address] [place] [address] 28644 Blood Urea Nitrogen May 30, 2020 4:05am 6 mg/dL 9-23 [facility], [address] [place] [address] 52830 Sodium Level May 30, 2020 4:05am 140 mmol/L 132-146 [facility], [address] [place] [address] 62105 Potassium Level May 30, 2020 4:05a m 4.0 mmol/L 3.5-5.5 [facility], [address] [place] [address] 83496 Chloride Level May 30, 2020 4:05am 109 mmol/l 99-109 [facility], [address] [place] [address] 53662 Carbon Dioxide Level May 30, 2020 4:05am 26 mmol/l 20-31 [facility], [address] [place] [address] 71167 Anion Gap May 30, 2020 4:05am 9 mmol/l 8-16 [facility], [address] [place] [address] 83707 Glucose Level May 30, 2020 4:05am 94 mg/dL 74-106 [facility], [address] [place] [address] 03474 Creatinine May 30, 2020 4:05am 0.8 mg/dL 0.5-1.1 [facility], [address] [place] [address] 29526 Glomerular Filtration Rate Calc Sept ember 2019 4:05am Greater than 60 ml/min ABOVE 60 [facility], [address] [place] [address] 20342 Alanine Aminotransferase (ALT/SGPT) May 30, 2020 4:05am 28 U/L [facility], [address] [place] [address] Alanine Aminotransferase (ALT/SGPT) August 25, 2019 7:40am 33 U/L 49 [facility], [address] [place] [address] Aspartate Amino Transf (AST/SGOT) Se pt2019 4:05am 13 U/L 0-33 [facility], [address] [place] [address] Aspartate Amino Transf (AST/SGOT) De cem2018 7:40am 18 U/L 0-33 [facility], [address] [place] [address] Alkaline Phosphatase May 30, 2020 4:05am 57 U/L 45-129 [facility], [address] [place] [address] Alkaline Phosphatase August 25, 2019 7:40am 54 U/L 45-129 [facility], [address] [place] [address] Calcium Level May 30, 2020 4:05am 8.2 mg/dL 8.5-10.1 [facility], [address] [place] [address] Total Bilirubin May 30, 2020 4:05a m 0.5 mg/dL 0.3-1.2 [facility], [address] [place] [address] Total Bilirubin August 25, 2019 7:40am 0.3 mg/dL 0.3-1.2 [facility], [address] [place] [address] Direct Bilirubin August 25, 2019 7:40a m 0.1 mg/dL 0.0-0.2 [facility], [address] [place] [address] Albumin May 30, 2020 4:05am 3.0 g/dL 3.2-4.8 [facility], [address] [place] [address] Albumin August 25, 2019 7:40am 3.6 g/dL 3.2-4.8 [facility], [address] [place] [address] Serum Total Protein May 30, 2020 4:05am 6.0 g/dL 5.7-8.2 [facility], [address] [place] [address] Serum Total Protein August 25 7:40am 6.9 g/dL 5.7-8.2 [facility], [address] [place] [address] Lactic Acid Level May 30 4:05am 1.9 mmol/L 0.5-2.2 [facility], [address] [place] [address] 30440 Triglycerides Level August 25 7:40am 250 mg/dL 0-150 [facility], [address] [place] [address] 36158 Cholesterol Level August 25 9 7:40am 197 mg/dL 120-200 [facility], [address] [place] [address] 55742 HDL Cholesterol August 25, 2019 7:40am 34 mg/dL HDL Less than 40 mg/dL: Major risk for CHDHDL Greater than 59 mg/dL: Low risk for CHD [facility], [address] [place] [address] 02705 LDL Cholesterol, Calculated August 25, 2019 7:40am 113 mg/dL 0-100 [facility], [address] [place] [address] Urine Marijuana (THC) Screen Mayemb er 2019 3:00pm Negative ng/mL Cutoff 50 [facility], [address] [place] [address] Urine Phencyclidine Screen May 29, 2020 3:00pm Negative ng/mL Cutoff 25 [facility], [address] [place] [address] Urine Cocaine Screen May 29, 2020 3:00pm Negative ng/mL Cutoff 150 [facility], [address] [place] [address] 48257 Urine Methamphetamines Screen lorenzo 2019 3:00pm Negative ng/mL Cutoff 500 [facility], [address] [place] [address] Urine Opiates Screen May 29, 2020 3:00pm Negative ng/mL Cutoff 100 [facility], [address] [place] [address] Urine Amphetamines Screen May 29, 2020 3:00pm Presumptive positive ng/mL Cutoff 500 This test is for screening purposes o nly. Confirmation of positive results will be sent to our Reference lab only at the Physician's request. [facility], [address] [place] [address] 21930 Urine Benzodiazepines Screen Septemb er 2019 3:00pm Negative ng/mL Cutoff 150 [facility], [address] [place] [address] Ur Tricyclic Antidepressants Screen May 29, 2020 3:00pm Negative ng/mL Cutoff 300 [facility], [facility] Urine Methadone Screen May 3:00pm Negative ng/mL Cutoff 200 [facility], [address] [place] [address] Urine Barbiturates May 29 3:00pm Negative ng/mL Cutoff 200 [facility], [address] [place] [address] Urine Oxycodone Screen May 3:00pm Negative ng/mL Cutoff 100 [facility], [address] [place] [address] Urine Propoxyphene Screen May 29, 2020 3:00pm Negative ng/mL Cutoff 300 [facility], [address] [place] [address] Urine Buprenorphine Screen May 29, 2020 3:00pm Negative ng/mL Cutoff 10 [facility], [address] [place], [place] [id number] C-Reactive Protein May 29 6:45pm 21.6 mg/L 0.0-5.0 [facility], [address] [place] [address] Follicle Stimulating Hormone [facility] 2018 7:40am 5.5 IU/L FSH REFERENCE RANGE IU/L Males Ages 13 - 70 yrs 1.4 - 18.1 Normally Menstruating Females Follicular Phase 2.5 - 10.2 Mid-Cycle Peak 3.4 - 33.4 Luteal Phase 1.5 - 9.1 Post-menopausal Females 23.0 - 116.3 Less Than 0.3 [facility], [address] [place] [address] 34267 Luteinizing Hormone August 25 7:40am 11.0 IU/L LH REFERENCE RANGE IU/L Males 20 - 70yrs 1.5 - 9.3 Greater than 70yrs 3.1 - 34.6 Normally Menstruating Females Follicular Phase 1.9 - 12.5 Mid-Cycle Peak 8.7 - 76.3 Luteal Phase 0.5 - 16.9 Postmenopausal Females 15.9 - 54.0 L ess Than 0.1 - 1.5 Contraceptives 0.7 - 5.6 Children Less Than 0.1 - 6.0 [facility], [address] [place] [address] Prolactin August 25, 2019 7:40am 17.1 ng/mL PROLACTIN REFERENCE RANGE ng/mL Males 2.1 - 17.7 Females Non 2.8 - 29.2 9.7 - 208.5 Postmenopausal 1.8 - 20.3 [facility], [address] [place] [address] Troponin I May 29, 2020 2:05pm Less than 0.015 ng/mL 0.00-0.09 Less than 0.09 NG/ML Negative0.10 - 0.77 NG/ML High Risk0.78 NG/ML or Greater Positive The WHO defined the cutoff (definition for diagnosis of [place])for this method as 0.78 ng/ml. [facility], [address] [place] [address] Thyroid Stimulating Hormone (TSH) Se pt2019 2:05pm 2.30 uIU/mL 0.35-5.50 [facility], [address] [place] [address] Thyroid Stimulating Hormone (TSH) De cember 2018 7:40am 3.84 uIU/mL 0.35-5.50 [facility], [address] [place] [address] Serum Test, Qualitative Se pt2019 2:05pm Negative NEGATIVE [facility], [address] [place] [address] Surgical Pathology Specimen March 9:45am See scanned report [facility], [address] [facility] [address] Thin Prep Pap w Human Papilloma Vir August 26, 2019 2:15pm See scanned report [facility], [phone] [facility] [address] Total Testosterone August 25 7:40am 28 ng/dL [facility] , [address] [facility] [phone] Free Androgen Index August 25 7:40am 0.9 [facility] , [address] [facility] [phone] Free Testosterone August 25 7:40am 1.5 pg/mL Performed at: [facility] [id number] Director: Sun Melendez MD, Phone: [phone] [facility] , [address] [place] [phone] Sex Hormone Binding Globulin [facility] 2018 7:40am 104.8 nmol/L Performed at: [facility] [address] [id number] Director: Sun Melendez MD, Phone: [phone] [facility] , [address] [place] [phone] Insulin Level August 25, 2019 7:40am 26.0 uIU/mL Performed at: [facility] [address] [id number] Director: Sun Melendez MD, Phone: [phone] [facility] , [address] [place] [phone] Hemoglobin A1c May 30, 2020 4:05am 5.4 [...] glucose control. * High risk of developing half-way complications such asretinopathy, nephropathy, neuropathy, cardiopathy, etc. Some danger of hypoglycemic reaction in Type I diabetics.Some glucose intolerant individuals and "Sub Clinical"diabetics may demonstrate HGBA1C levels in this area. [facility], [address] [place] [address] Estimated Average Glucose (eAG) May 4:05am 108 mg/dl An A1C of 7% - the goal of diabetic ther apy - is equivalentto an EAG of 154 mg/dl. [facility], [address] [place] [address] 22433 Microbiology Results Procedure Source Result Collection Date/Time Result Date/Time Result Comment Performing Site Blood Culture Venous blood No growth. May 29, 2020 3:45pm Septembe r 2019 3:51pm [facility], [address] [place] [address] Respiratory Panel (PCR) Nasopharyngeal No Organisms Detected May 29, 2020 7:32pm May 29, 2020 8:25pm [facility], [address] [place] [address] Diagnostic Imaging Reports Report Dictated Date/Time Dictated By Status Radiology Report May 29 0 4:11pm Laney Herrera MD completed [facility] [address] [place] [address] [phone] NAME SEX PT STATUS ACCOUNT NUMBER Aftab Guzman REG ER [id number] ORDERING PHYSICIAN LOCATION MEDICAL RECORD NO. Cameron Ramos MD ER [id number] ATTENDING PHYSICIAN DATE OF DATE OF EXAM/TIME Belén Jay MD 1985 05/29/20 / 1538 TYPE / EXAM Xray Chest 2 view [...] (16:11 Eastern Time ) Signed by: Laney Herrera M.D. Reported By Laney Herrera MD on 05/29/20 161 Signed By Laney Herrera MD on 05/29/201610 Date Time CC: Belén Jay MD; Laney Herrera MD Techn: MORSA Trans Dt/Tm: Trans by: DT Prt Dt/Tm: : Total DLP = 0.00 mGy-cm Fluoroscopy Time (in secs): Radiology Report May 29 6:05pm Anthony Rhoades MD completed [facility] [address] [place] [address] [phone] NAME SEX PT STATUS ACCOUNT NUMBER Aftab Guzman REG ER [id number] ORDERING PHYSICIAN LOCATION MEDICAL RECORD NO. Cameron Ramos MD ER [id number] ATTENDING PHYSICIAN DATE OF DATE OF EXAM/TIME Belén Jay MD 1985 05/29/201734 TYPE / EXAM CT Abd/pel w/ contrast [...] 30 0 3:31pm Caterina Aguilar MD completed [facility] [address] [facility] [address] [place] [id number] [phone] NAME SEX PT STATUS ACCOUNT NUMBER AFTAB GUZMAN ADM [facility] [id number] ORDERING PHYSICIAN LOCATION MEDICAL RECORD NO. 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 Med physical SEPSIS Weight management Reason for Visit Encounter for well woman exam with abnormal findings Fibrocystic breast disease (FCBD) in female Educated about management of weight Skin mole Hypothyroidism PCOS (polycystic ovarian syndrome) Encounters Encounter Location(s) Ar rival/Admit Date Discharge/Depart Date Provider(s) Registered Referred -Laboratory August 25, 2019 7:35am Damion Ramirez II, MD Departed Physician/Provider Office Visit -[facility] August 26, 2019 1:17pm August 26, 2019 2:23pm Damion Ramirez II, MD Registered Referred -Lab Drop Off August 26, 2019 5:07pm Damion Ramirez II, MD Departed Physician/Provider Office Visit -[facility] February 24, 2020 1:14pm February 24, 2020 2:31pm Damion Ramirez II, MD Departed Physician/Provider Office Visit -[facility] March 30, 2020 10:40am March 30, 2020 11:23am Damion Ramirez II, MD Departed Physician/Provider Office Visit -[facility] General Surgery April 12, 2020 9:11am April 12, 2020 9:54am Luis F Florian MD Registered Referred -Lab Drop Off April 12, 2020 2:39pm Luis F Florian MD Registered Referred -Occupational Medicine April 20, 2020 11:00pm [facility] Departed Physician/Provider Office Visit -[facility] April 21, 2020 8:50am April 21, 2020 9:27am Shira Santiago Discharged Inpatient -[facility] May 29, 2020 6:54pm May 30, 2020 3:53pm oGnzalo Tillman MD Departed Physician/Provider Office Visit -[facility] August 08, 2020 7:59am August 08, 2020 8:41am Damion Ramirez II, MD Recent Diagnosis Onset Date Encounter for well woman exam with abnormal findings Fibrocystic breast disease (FCBD) in female Educated about management of weight Skin mole Hypothyroidism PCOS (polycystic ovarian syndrome) Assessments Diagnosis Onset Date Res olution Status Encounter for well woman exam with abnormal findings acute Fibrocystic breast disease (FCBD) in female acute Educated about management of weight acute Skin mole acute Hypothyroidism noneactive PCOS (polycystic ovarian syndrome) noneactive Family History Relationship Condition A ge at Onset Recorded Date/Time Not Specified Diabetes mellitus Unknown Hypertension Unknown Functional Status Observation Response Brennan e Recorded Functional Status Complete Martin May 29, 2020 8:31pm Goals Goals may be documented in an alternate section. Immunizations No Immunization Information Available Mental Status Observation Response Brennan e Recorded Cognitive Status Normal Cognition May 30, 2020 2:00pm Medical Equipment No Medical Equipment Information available Insurance Providers Guarantor [employer] Address [address] [place] [address] Contact Info. Home Phone: Payer Policy Id Coverage Id Subscriber's Name Subscriber Id Effective Date Expiration Date BC/BS [facility] [id number] AFTABTANYA GUZMAN [id number] [facility] [id number] AFTAB L [place] [id number] BC/BS OF [facility] [id number] AFTAB L [place] [id number] [address] [facility] [id number] AFTABTANYA GUZMAN [id number] Self Pay Self N/A Plan of Treatment History and physical done. Forms completed and [...] for Referral Referral Start Date Provider Provider Contbill ct Information Provider Address Belén Jay MD Email: [email or web address] Phone: [facility] [place] [address] D22.9 - Melanocytic nevi, unspecified March 26, 2020 Abraham yun MD Work Phone: [phone] [address] Future Procedures Future procedure information is unavailable [...] erence Range Collection Date/Time Height 68 [in_i] August 26, 2019 1:37pm Weight 279.00 [lb_av] August 26, 2019 1:37pm Body Temperature 99 [degF] 97.6-99.5 August 26, 2019 1:37pm Heart Rate 99 /min 60-100 August 26, 2019 1:37pm Respiratory rate 18 /min 12-24 August 26, 2019 1:37pm Oxygen saturation by Pulse oximetry 98 % 95- 100 August 26, 2019 1:37pm BP Systolic 142 mm[Hg] August 26, 2019 1:37pm BP Diastolic 76 mm[Hg] August 26, 2019 1:37pm BMI (Body Mass Index) 42.4 kg/m2 August 26, 2019 1:37pm Height 68 [in_i] February 24, 2020 2:54pm [...] 30, 2020 12:24pm Respiratory rate 18 /min -March 30, 2020 12:24pm Oxygen saturation by Pulse [...] 12, 2020 10:17am Respiratory rate 18 /min 12-April 12, 2020 10:17am BP Systolic 132 mm[Hg] [...]
[2020-10-26] MEDS ORDERED: fentaNYL 100 MCG/2 ML INJECTION (J3010) As Ordered ONE ×2 (11:32→12:41)
[2020-10-26] MEDS ORDERED: ROCURONIUM BROMIDE 50 MG/5 ML VIAL As Ordered ONE ×2 (11:32→12:51)
[2020-10-26] MEDS ORDERED: propofoL 200 MG/20 ML VIAL As Ordered ONE ×2 (11:32→12:43)
[2020-10-26] MEDS ORDERED: LIDOCAINE 2% 100MG/5ML SDV (FOR ANES.) As Ordered ONE (11:32)
[2020-10-26] MEDS ORDERED: MIDAZOLAM INJ 2MG/2ML VIAL (J2250 PER 1MG) As Ordered ONE (11:33)
[2020-10-26] MEDS ORDERED: METHYLENE BLUE 0.5% (5MG/ML) 10 ML AMP (PROVAYBLUE) As Ordered ONE (11:56)
[2020-10-26] MEDS ORDERED: EPINEPHrine 1MG/ML INJ 30ML MD-VIAL As Ordered ONE (11:56)
[2020-10-26] MEDS ORDERED: LIDOCAINE W/EPINEPHRINE 1% 20ML VIAL As Ordered ONE (11:56)
[2020-10-26] MEDS ORDERED: ONDANSETRON 4MG/2ML VIAL As Ordered ONE (11:58)
[2020-10-26] MEDS ORDERED: dexameTHASONE 4 MG/ML 1ML VIAL (J1100 PER 1MG) As Ordered ONE (11:58)
[2020-10-26] MEDS ORDERED: ACETAMINOPHEN 1000MG 100ML IV BTL (OFIRMEV) (J0131 PER 10MG) As Ordered ONE (12:33)
[2020-10-26] MEDS ORDERED: NEOSTIGMINE 10MG/10ML VIAL (J2710 PER 0.5MG) As Ordered ONE (12:45)
[2020-10-26] MEDS ORDERED: GLYCOPYRROLATE INJ 0.2 MG/ML 2 ML VIAL As Ordered ONE (12:45)
[2020-10-26] MEDS ORDERED: hydrALAZINE 20MG/ML 1ML VIAL (J0360 PER 20MG) As Ordered ONE (12:47)
[2020-10-26] MEDS ORDERED: LABETALOL 100MG/20ML VIAL As Ordered ONE (12:49)
[2020-10-26] MEDS ORDERED: ONDANSETRON 4MG/2ML VIAL IV PRN (13:30)
[2020-10-26] MEDS ORDERED: ACETAMINOPH W/CODEINE #3 TAB UD PO PRN (13:30)
[2020-10-26] MEDS ORDERED: PERCOCET 5MG/325MG TAB PO PRN (13:30)
[2020-10-26] MEDS ORDERED: HYDROMORPHONE HCL 0.5 MG/ 0.5 ML SYRINGE (J1170 PER 1) IV PRN (13:30)
[2020-10-26] MEDS ORDERED: METOCLOPRAMIDE INJ 10MG/2ML VIAL (J2765 PER 1) IV PRN (13:30)
[2020-10-26] MEDS ORDERED: LR 1,000 ML IV SCH ×2 (13:30)
[2020-10-26] MEDS ORDERED: fentaNYL 100 MCG/2 ML INJECTION (J3010) IV PRN (13:30)
[2020-10-26 14:25] VITALS: BP 166/99
--- NOTE | 2020-10-26 14:45 | RO ---
OPERATIVE NOTE DATE OF OPERATION: 10/26/2020 PREOPERATIVE DIAGNOSIS: Chronic left maxillary sinusitis. POSTOPERATIVE DIAGNOSIS: Chronic left maxillary sinusitis. PROCEDURE: Left intranasal antrostomy. SURGEON: Hebert Arguelles MD DESCRIPTION OF PROCEDURE: Under general anesthesia with the patient intubated, the patient was draped in the usual manner. I used pledgets of adrenaline 1:100,000. I went between the middle turbinate and lateral nasal wall. I identified the uncinate process. I removed that. I identified the natural sinus ostium, then enlarged that opening anteriorly, posterior, superiorly, and inferiorly. There was a cystic structure within the sinus, which was removed. There was very little bleeding after that. I put a Propel implant in the osteomeatal complex area. The patient was extubated and transferred to recovery room in excellent condition. ESTIMATED BLOOD LOSS: 50 mL.
== END 2020-10-26 14:25 | disposition home or self-care (01) ==
LOC: M SDC 09:36
PROVIDERS: ATTEND Otolaryngology
DX: J32.0 Chronic maxillary sinusitis (principal); I10 Essential (primary) hypertension; Z79.899 Other long term (current) drug therapy; Z87.891 Personal history of nicotine dependence
CPT/HCPCS: 31267; 81025; 88305; C2625; J0131; J0360; J1100; J2250; J2405; J2710; J3010; Q9968